=== PATIENT | female | born 1965 | race Caucasian/White ===

== ENCOUNTER 2020-09-12 06:18 | Outpatient (REF) | payer OTHER, SELFPAY ==
[2020-09-12 07:14] LABS: MANUAL DIFF FLAG NO
[2020-09-12 07:23] LABS: Basophils Percent Auto 0.6 % (0-2); Eosinophils Absolute Auto 0.1 X10*3/uL (0.0-0.4); Eosinophils Percent Auto 2.1 % (0-4); Hematocrit 41.8 % (37-47); Hemoglobin 13.1 g/dl (12.0-16.0); Imm Gran Abs Auto 0.01 X10*3/uL (0.00-0.03); Imm Gran Pct Auto 0.2 % (0.0-0.4); Lymphocytes Absolute Auto 1.7 X10*3/uL (1.2-4.9); Lymphocytes Percent Auto 31.2 % (20-40); Mean Corpuscular HGB Conc 31.3 g/dl (31.0-35.0); Mean Corpuscular Hemoglobin 29.6 pg (27.0-33.0); Mean Corpuscular Volume 94.4 fL (80-98); Monocytes Absolute Auto 0.4 X10*3/uL (0.1-1.2); Monocytes Percent Auto 7.9 % (2-11); Neutrophils Absolute Auto 3.1 X10*3/uL (2.0-8.3); Platelet Count 237 X10*3/uL (160-400); Red Blood Count 4.43 X10*6/uL (4.20-5.50); Red Cell Distribution Width 12.9 % (11.0-16.0); White Blood Count 5.4 X10*3/uL (4.8-10.8)
[2020-09-12 08:00] LABS: Alanine Aminotransferase 17 U/L (0-31); Albumin Level 4.5 g/dL (3.5-5.0); Alkaline Phosphatase 64 U/L (39-117); Anion Gap 14 (12-20); Aspartate Amino Transferase 18 U/L (5-31); Bilirubin Total 0.4 mg/dL (0.0-1.0); Blood Urea Nitrogen 14 mg/dL (9-16); Calcium 9.4 mg/dL (8.4-10.2); Carbon Dioxide 28 mmol/L (22-29); Chloride 104 mmol/L (96-108); Cholesterol 242 mg/dL; Estimated Glomerular Filt Rate > 60; Glucose Fasting 97 mg/dL (60-99); HDL Cholesterol 67 mg/dL; LDL Cholesterol Calculated 154 mg/dl; Potassium 4.3 mmol/l (3.3-5.1); Sodium 142 mmol/L (135-145); Total Protein 6.9 g/dL (6.5-8.0); Triglycerides 106 mg/dL
== END 2020-09-12 06:19 | disposition home or self-care (01) ==
LOC: HO.LAB 06:18
PROVIDERS: Visit Provider Internal Medicine Medical Oncology
DX: M81.0 Age-related osteoporosis without current pathological fracture (principal); E78.49 Other hyperlipidemia; Z78.0 Asymptomatic menopausal state
CPT/HCPCS: 36415; 80053; 80061; 85025

== ENCOUNTER 2021-05-18 08:21 | Emergency (ER) | payer OTHER, SELFPAY ==
--- NOTE | ~2021-05-18 | XR_ITS ---
EXAMINATION: LEFT ANKLE AND LEFT FOOT. CLINICAL INFORMATION: Pain status post fall. COMPARISON: None TECHNIQUE: 3 views left foot. 2 views left ankle. FINDINGS: Left ankle: The ankle mortise and subtalar joints are normal. No visible acute fracture or dislocation seen. There is mild inferior lateral malleolar soft tissue swelling likely ligamentous injury. Left foot: There is no visible acute fracture, dislocation or subluxation. The MTP joints and IP joints are intact. No soft tissue abnormality. XR/XR foot LT 2V IMPRESSION: Minimal left inferior lateral malleolar soft tissue swelling likely ligamentous injury. There is no acute fracture or dislocation left ankle or left foot.
--- NOTE | ~2021-05-18 | XR_ITS ---
EXAMINATION: LEFT ANKLE AND LEFT FOOT. CLINICAL INFORMATION: Pain status post fall. COMPARISON: None TECHNIQUE: 3 views left foot. 2 views left ankle. FINDINGS: Left ankle: The ankle mortise and subtalar joints are normal. No visible acute fracture or dislocation seen. There is mild inferior lateral malleolar soft tissue swelling likely ligamentous injury. Left foot: There is no visible acute fracture, dislocation or subluxation. The MTP joints and IP joints are intact. No soft tissue abnormality. XR/XR ankle LT 2V IMPRESSION: Minimal left inferior lateral malleolar soft tissue swelling likely ligamentous injury. There is no acute fracture or dislocation left ankle or left foot.
[2021-05-18 08:21] VITALS: BP 160/75; PULSE 75; RESP 16; TEMP 36.4; O2SAT 100; BMI 25.4
--- NOTE | 2021-05-18 08:39 | ED_ITS ---
HPI - Extremity Injury (Lower) General Chief Complaint: Extremity Problem Stated Complaint: ankle pain Time Seen by Provider: 05/18/21 08:39 Source: patient Mode of arrival: ambulatory Limitations: no limitations History of Present Illness MD complaint: ankle injury and foot injury Onset (ago): day(s) (yesterday ) Injury: Left: ankle and foot Type of Injury: blunt Place: street/outdoors Severity: moderate Relieving factors: nothing Exacerbating factors: weight bearing and movement Context: fall (tried to photobomb a picture and when she jumped up she had inversion injury) Associated symptoms: snap/pop sensation and swelling Other symptoms: none Related Data Allergies Allergy/AdvReac Type Severity Reaction Status Date / Time No Known Allergies Allergy Unverified 06/12/20 08:54 [No Known Allergies*] Review of Systems Review of Systems: Constitutional : No Fever, No Chills ENT/Mouth : No Ear Pain, No Hoarseness, No sore throat Eyes: No Eye Pain, No Swelling, No Redness, No Foreign Body Cardiovascular : No Chest Pain, No SOB Respiratory : No Cough, No Dyspnea Gastrointestinal : No Nausea, No Vomiting, No Diarrhea, No abdominal Pain Genitourinary : No Dysuria, No Hematuria Musculoskeletal : positive joint pain, No Myalgias, pos Joint Swelling Skin : No Skin lacerations, No rash Neuro : No Weakness, No Numbness All other systems reviewed and are negative PMFSH Past Medical History Attestation statement: The following information was validated with the patient. Medical History Breast cancer No known health problems Osteoporosis Social History Social History (Updated 05/18/21 @ 09:09 by Samia Alvarez DO) Patient Tobacco Use Status: Never used Tobacco Advance Directives: No Advance Directives Information Provided: No Patient : No Physical Exam Vital Signs: Vital Signs: Last Vital Signs Temp 97.6 F 05/18/21 08:21 Pulse 75 05/18/21 08:21 Resp 16 05/18/21 08:21 BP 160/75 H 05/18/21 08:21 Pulse Ox 100 05/18/21 08:21 Body Mass Index 25.4 Appearance: Alert. Oriented X3. No acute distress. Eyes: Pupils equal, round and reactive to light. ENT: Pharynx normal. Neck: Normal inspection. Neck supple. CVS: Normal heart rate and rhythm. Pulses normal. Respiratory: No respiratory distress. Breath sounds normal. Abdomen: Soft and nontender. Skin: Skin warm and dry. Normal skin color. Extremities: L ankle ttp along lateral malleolus no prox fib ttp, distal NV intact, contusion noted over L lateral aspect of dorsum of foot, no pain to palpation of the bones Neuro: Oriented X 3. No motor deficit. No sensory deficit. MDM - Extremity Injury (Lower) MDM Narrative Medical decision making narrative: 56 yo female here with L ankle inversion i njury NV intact - no proximal injury reported at this time xrays ordered, has crutches at home will offer hard sole shoe Procedures Orthopedic Splinting/Casting Injury #1: Side: left Lower Extremity Injury Location: ankle Lower Extremity Immobilizer: AirCast Other Orthopedic Equipment: other (has crutches at home) Discharge Plan Discharge Clinical Impression: Foot sprain, Ankle sprain Patient Disposition: Home, Self-Care Instructions: Ankle Sprain (ED), Foot Sprain (ED) Additional Instructions: return to ED for any worsening symptoms or concerns crutches x 3 days if improved can start bearing weight aircast for one week Referrals: Justice Baez MD [Primary Care Provider] - 5 days (if not better) Stand Alone Forms: Work/School Release
== END 2021-05-18 09:42 | disposition home or self-care (01) ==
PROVIDERS: Emergency Provider Emergency Medicine; PCP Internal Medicine Medical Oncology
DX: S93.402A Sprain of unspecified ligament of left ankle, initial encounter (principal); M25.572 Pain in left ankle and joints of left foot; W01.0XXA Fall on same level from slipping, tripping and stumbling without subsequent striking against object, initial encounter; Y93.9 Activity, unspecified; Y92.9 Unspecified place or not applicable; Y99.9 Unspecified external cause status
CPT/HCPCS: 29515; 73600; 73620; 99283

== ENCOUNTER 2022-03-05 09:05 | Outpatient (REF) | payer OTHER, SELFPAY ==
[2022-03-09 12:47] LABS: HPV mRNA E6/E7 rflx Not Detected (Not Detected)
== END 2022-03-05 09:06 | disposition home or self-care (01) ==
LOC: HO.LAB 09:05
PROVIDERS: Visit Provider Advanced Practice Midwife
DX: Z01.419 Encounter for gynecological examination (general) (routine) without abnormal findings (principal); Z11.51 Encounter for screening for human papillomavirus (HPV)
CPT/HCPCS: 87624; 88142

== ENCOUNTER 2022-05-24 07:24 | Outpatient (REF) | payer OTHER, SELFPAY ==
--- NOTE | ~2022-05-24 | XR_ITS ---
EXAMINATION: XR CHEST CLINICAL INFORMATION: Acute cough. COMPARISON: None TECHNIQUE: 2 views of the chest were obtained. FINDINGS: No significant abnormality is noted involving the heart, lungs, mediastinum, bony thorax or soft tissues. XR/XR chest 2V IMPRESSION: Unremarkable chest examination.
== END 2022-05-24 07:25 | disposition home or self-care (01) ==
LOC: HO.XRAY 07:24
PROVIDERS: PCP Internal Medicine Medical Oncology; Visit Provider Internal Medicine Medical Oncology
DX: R05.1 Acute cough (principal)
CPT/HCPCS: 71046; 87070; 87205

== ENCOUNTER 2022-08-23 07:30 | Day surgery (SDC) | payer OTHER, SELFPAY ==
--- NOTE | 2022-08-22 12:57 | P.CONAN_ITS ---
Documented by User: Pilar Bynum NP 08/22/22 12:58 HPI - Anesthesia Eval Consult details Narrative: 57yo F for Colonoscopy Factor V, no OAC PMFSH Active Problems Active Problems: All Active Problems (Updated 08/22/22 @ 12:38 by Shanell Sullivan RN) Encounter for annual routine gynecological examination (Acute) Past Medical History Medical History (Updated 08/22/22 @ 12:38 by Shanell Sullivan RN) Breast cancer Diverticulitis Factor 5 Leiden mutation, heterozygous Osteoporosis Family History Family History Mother History of breast cancer Maternal Grandmother History of breast cancer Uterine cancer Surgical History Surgical History History of lumpectomy of right breast Hx of appendectomy Social History Social History Alcohol intake: current Alcohol intake frequency: a few times a week Patient Tobacco Use Status: Never used Tobacco Use of substances other than those prescribed or required for medical reasons: No Are you DNR?: No Advance Directives: No Advance Directives Information Provided: Yes Current occupational status: employed 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[employer] Sexual orientation: Straight/Heterosexual Gender identity: Female Meds Allergies Allergy/AdvReac Type Severity Reaction Status Date / Time No Known Allergies Allergy Verified 03/05/22 08:09 [No Known Allergies*] Home Medications Medication Instructions Recorded Confirmed Last Taken Type alendronate 70 mg tablet 70 mg PO QWEEK 03/05/22 08/23/22 Unknown History Exam Exam Date and Time: August 22, 2022 1257 Assessment and Plan Assessment Anesthesia Assessment: Chart Reviewed Documented by User: Mary Mckinley MD 08/23/22 08:49 PMFSH Past Medical History Medical History (Updated 08/22/22 @ 12:38 by Shanell Sullivan RN) Breast cancer Diverticulitis Factor 5 Leiden mutation, heterozygous Osteoporosis Family History Family History Mother History of breast cancer Maternal Grandmother History of breast cancer Uterine cancer Surgical History Surgical History History of lumpectomy of right breast Hx of appendectomy Social History Social History Alcohol intake: current Alcohol intake frequency: a few times a week Patient Tobacco Use Status: Never used Tobacco Use of substances other than those prescribed or required for medical reasons: No Are you DNR?: No Advance Directives: No Advance Directives Information Provided: Yes Current occupational status: employed 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[employer] Sexual 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
[2022-08-23 07:44] VITALS: BMI 24.7
[2022-08-23 07:53] VITALS: BP 124/64; PULSE 81; RESP 16; TEMP 36.7; O2SAT 100
[2022-08-23] MEDS: Lactated Ringers 1,000 ML 100 ML IVCONT (08:10)
[2022-08-23 09:48] VITALS: BP 104/53; PULSE 69; RESP 17; TEMP 37.1; O2SAT 98
--- NOTE | 2022-08-23 09:52 | P.BOP_ITS ---
Brief Operative Note Date of Service: 08/23/22 Pre-op diagnosis: Screening Post-op diagnosis: other (Rectal polyp) Procedure: Colonoscopy to the cecum and TI with cold snare polypectomy and bx/removal of rectal polyp Surgeon: Justice Brown Anesthesia: MAC Was an General Technician used for this Procedure?: No Estimated blood loss (mL): 2.0 Pathology: other (A. Distal rectal polyp) Condition: stable Disposition: PACU
[2022-08-23 10:03] VITALS: BP 114/60; PULSE 65; RESP 18; TEMP 36.9; O2SAT 98
--- NOTE | 2022-08-23 11:00 | OP_ITS ---
SURGEON: Justice Brown MD INDICATIONS: The patient presents for evaluation of colorectal cancer screening and personal history of tubular adenoma of the colon. Full consent was obtained from her for this, including risks of bleeding and perforation. PREOPERATIVE DIAGNOSIS: POSTOPERATIVE DIAGNOSIS: PROCEDURE PERFORMED: Colonoscopy to cecum and terminal ileum with cold snare polypectomy and biopsy and removal of polyp. ESTIMATED BLOOD LOSS: COMPLICATIONS: ANESTHESIA: Monitored anesthesia care. ASSISTANTS: SPECIMENS: PREOPERATIVE DIAGNOSES: Personal history of tubular adenoma of the colon and colorectal cancer screening. POSTOPERATIVE DIAGNOSES: Personal history of tubular adenoma of the colon and colorectal cancer screening, small colon polyp, diverticulosis and internal hemorrhoids. DESCRIPTION OF PROCEDURE: The patient was placed in the left lateral decubitus position. The digital rectal exam revealed no abnormalities. The Olympus video pediatric colonoscope was entered into the rectum and advanced easily to the cecum. Once in the cecum, I did identify normal-appearing cecal pouch with appendiceal orifice and a normal-appearing ileocecal valve. The terminal ileum was cannulated and appeared normal. The scope was withdrawn back in the colon. The entire cecum and ileocecal valve appeared normal. The scope was slowly withdrawn assessing all mucosal surfaces carefully. Preparation was excellent. There was a moderate amount of diverticulosis. I did not visualize any sign of colitis nor angiodysplasia. In the rectum, the scope was retroflexed visualizing some internal hemorrhoids as well as an approximately 5 or 6 mm distal rectal polyp. This was partially removed by cold snare polypectomy and the remainder of it was removed with a biopsy forceps. The remainder of the rectum appeared normal. Scope was straightened and withdrawn the patient. She tolerated the procedure well and was returned to the recovery area in stable condition. IMPRESSION: 1. Small rectal polyp. 2. Diverticulosis. 3. Internal hemorrhoids. PLAN: I would recommend a repeat colonoscopy in 5 years for further screening. She was advised not to use any aspirin or NSAIDs for 1 week. The results of biopsies will be checked. MD ANTIONE Rhoades/VIRY / [id number]
== END 2022-08-23 10:19 | disposition home or self-care (01) ==
PROVIDERS: PCP Internal Medicine Medical Oncology; Visit Provider Internal Medicine
PROC: 0DJD8ZZ Inspection of Lower Intestinal Tract, Via Natural or Artificial Opening Endoscopic (ICD-10-PCS; CPT 45378; principal; 2022-08-23 08:40)
DX: Z12.11 Encounter for screening for malignant neoplasm of colon (principal); Z86.010 Personal history of colon polyps; D12.8 Benign neoplasm of rectum; K57.30 Diverticulosis of large intestine without perforation or abscess without bleeding; K64.8 Other hemorrhoids; M81.0 Age-related osteoporosis without current pathological fracture; D68.51 Activated protein C resistance; Z85.3 Personal history of malignant neoplasm of breast; Z92.21 Personal history of antineoplastic chemotherapy; Z92.3 Personal history of irradiation; Z87.19 Personal history of other diseases of the digestive system; Z87.891 Personal history of nicotine dependence
CPT/HCPCS: 45385; 45380; 88305; J2250

== ENCOUNTER 2022-09-17 06:11 | Outpatient (REF) | payer OTHER, SELFPAY ==
[2022-09-17 06:29] LABS: MANUAL DIFF FLAG NO
[2022-09-17 08:05] LABS: Basophils Absolute Auto 0.1 X10*3/uL (0.0-0.2); Basophils Percent Auto 0.6 % (0-2); Eosinophils Absolute Auto 0.1 X10*3/uL (0.0-0.4); Eosinophils Percent Auto 1.4 % (0-4); Hematocrit 42.4 % (37.0-47.0); Hemoglobin 13.4 g/dl (12.0-16.0); Imm Gran Abs Auto 0.02 X10*3/uL (0.00-0.03); Imm Gran Pct Auto 0.2 % (0.0-0.4); Lymphocytes Absolute Auto 1.7 X10*3/uL (1.2-4.9); Lymphocytes Percent Auto 19.7 % (20-40); Mean Corpuscular HGB Conc 31.6 g/dl (31.0-35.0); Mean Corpuscular Hemoglobin 29.1 pg (27.0-33.0); Mean Platelet Volume 11.2 fL (9.4-12.3); Monocytes Absolute Auto 0.6 X10*3/uL (0.1-1.2); Monocytes Percent Auto 7.3 % (2-11); Neutrophils Percent Auto 70.8 % (45-73); Platelet Count 256 X10*3/uL (160-400); Red Blood Count 4.61 X10*6/uL (4.20-5.50); Red Cell Distribution Width 12.9 % (11.0-16.0); White Blood Count 8.5 X10*3/uL (4.8-10.8)
[2022-09-17 08:45] LABS: Alanine Aminotransferase 17 U/L (0-31); Albumin Level 4.5 g/dL (3.5-5.0); Alkaline Phosphatase 70 U/L (39-117); Anion Gap 15 (12-20); Aspartate Amino Transferase 20 U/L (5-31); Blood Urea Nitrogen 10 mg/dL (9-16); Calcium 9.5 mg/dL (8.4-10.2); Carbon Dioxide 26 mmol/L (22-29); Chloride 106 mmol/L (96-108); Cholesterol 261 mg/dL; Estimated Glomerular Filt Rate > 60; Glucose Fasting 88 mg/dL (60-99); HDL Cholesterol 61 mg/dL; LDL Cholesterol Calculated 173 mg/dl; Potassium 4.3 mmol/L (3.3-5.1); Sodium 143 mmol/L (135-145); Total Protein 6.9 g/dL (6.5-8.0); Triglycerides 137 mg/dL
[2022-09-17 09:03] LABS: Vitamin D 25-OH Total 35.7 ng/mL (>30)
[2022-09-20 11:04] LABS: IgA 154 mg/dL (47-310); IgG 959 mg/dL (600-1640); IgM 61 mg/dL (50-300)
== END 2022-09-17 06:12 | disposition home or self-care (01) ==
LOC: HO.LAB 06:11
PROVIDERS: PCP Internal Medicine Medical Oncology; Visit Provider Internal Medicine Medical Oncology
DX: C50.911 Malignant neoplasm of unspecified site of right female breast (principal); D68.59 Other primary thrombophilia; D80.6 Antibody deficiency with near-normal immunoglobulins or with hyperimmunoglobulinemia; M81.0 Age-related osteoporosis without current pathological fracture; E78.49 Other hyperlipidemia
CPT/HCPCS: 36415; 80053; 80061; 82232; 82306; 82784; 85025; 86334

== ENCOUNTER 2023-01-08 06:56 | Outpatient (REF) | payer OTHER, SELFPAY ==
[2023-01-08 07:08] LABS: MANUAL DIFF FLAG NO
[2023-01-08 07:52] LABS: Basophils Percent Auto 0.8 % (0-2); Eosinophils Absolute Auto 0.2 X10*3/uL (0.0-0.4); Eosinophils Percent Auto 3.5 % (0-4); Hematocrit 42.5 % (37.0-47.0); Hemoglobin 13.6 g/dl (12.0-16.0); Imm Gran Abs Auto 0.01 X10*3/uL (0.00-0.03); Imm Gran Pct Auto 0.2 % (0.0-0.4); Lymphocytes Absolute Auto 1.6 X10*3/uL (1.2-4.9); Mean Corpuscular Hemoglobin 29.4 pg (27.0-33.0); Mean Platelet Volume 10.6 fL (9.4-12.3); Monocytes Absolute Auto 0.5 X10*3/uL (0.1-1.2); Monocytes Percent Auto 8.8 % (2-11); Neutrophils Absolute Auto 2.8 x10*3/uL (2.0-8.3); Neutrophils Percent Auto 54.7 % (45-73); Platelet Count 256 X10*3/uL (160-400); Red Blood Count 4.62 X10*6/uL (4.20-5.50); White Blood Count 5.1 X10*3/uL (4.8-10.8)
[2023-01-08 08:22] LABS: Alanine Aminotransferase 20 U/L (0-31); Albumin Level 4.6 g/dL (3.5-5.0); Alkaline Phosphatase 68 U/L (39-117); Anion Gap 13 (12-20); Aspartate Amino Transferase 19 U/L (5-31); Bilirubin Total 0.9 mg/dL (0.0-1.0); Blood Urea Nitrogen 13 mg/dL (9-16); Calcium 9.6 mg/dL (8.4-10.2); Carbon Dioxide 29 mmol/L (22-29); Chloride 105 mmol/L (96-108); Cholesterol 254 mg/dL; Estimated Glomerular Filt Rate > 60; Glucose Fasting 99 mg/dL (60-99); HDL Cholesterol 74 mg/dL; LDL Cholesterol Calculated 164 mg/dl; Potassium 4.6 mmol/L (3.3-5.1); Sodium 142 mmol/L (135-145); Total Protein 7.1 g/dL (6.5-8.0); Triglycerides 80 mg/dL
== END 2023-01-08 06:57 | disposition home or self-care (01) ==
LOC: HO.LAB 06:56
PROVIDERS: PCP Internal Medicine Medical Oncology; Visit Provider Internal Medicine Medical Oncology
DX: C50.911 Malignant neoplasm of unspecified site of right female breast (principal); E78.49 Other hyperlipidemia; D68.59 Other primary thrombophilia
CPT/HCPCS: 36415; 80053; 80061; 85025

== ENCOUNTER 2023-03-11 07:52 | Outpatient (AMB) | payer OTHER, SELFPAY ==
--- NOTE | 2023-03-11 07:57 | A.OFFVIS_ITS ---
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 Scribed for DANAY Licea by Ml Gates medical record assistant, on 03/11/2023 at 8:13 am EST. Service Employee: Service Employee Present (Estee) Allergies No Known Allergies [No Known Allergies*] Allergy (Verified 03/11/23 07:59) HPI HPI Comments History of Present Illness Details She is a postmenopausal woman presenting for annual exam. Patient admits she tries to eat a healthy diet including Calcium and Vitamin D. Reports she had COVID and is not as active as before. Currently sexually active, some vaginal pain, not dry, not a problem per pt. Denies vaginal itching and irritation. Denies family hx of colon and ovarian cancer. Last pap smear; 03/05/22; abnormal ~4-5yrs. ago. Last mammogram 04/18/22 at [facility], no records availalbe. 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 [employer] Sexual orientation: Straight/Heterosexual Gender identity: Female Female Reproductive History Menstrual Total pregnancies: 3 Full term: 2 Number of Living Children: 2 Date of last pap smear: 03/05/22 (neg pap and hpv) History of abnormal pap smear: Yes (hx colpo with Dr Adams) Date of Mammogram: 04/18/22 Physical Exam Vital Signs: Last Vital Signs BP 106/62 03/11/23 07:59 BMI result Body Mass Index 26.6 Const General: cooperative, healthy appearing, no acute distress, well developed and alert Orientation/consciousness: patient oriented x3 HEENT Head: Yes normal to inspection Eyes General: appearance normal, both eyes and all related structures Neck Neck: Yes normal visual inspection Thyroid: Thyroid normal Chest Other: scar tissue on right breast from surgical scars Chest palpation & inspection: normal inspection of the chest Breast/axilla inspection: normal inspection of the breasts (no puckering, dimpling, peau de orange, retraction, discharge, masses) Breast/axilla palpation: normal palpation of the breasts Resp Effort & Inspection: normal respiratory effort GI Inspection: Yes normal to inspection Palpation (GI): Soft to palpation (to palpation) Rectal Exam - Female: deferred General: Yes bladder normal to inspection External Female Exam: normal external appearance and normal appearance of the urethra Speculum Exam - Vagina: normal appearance of the vagina, normal palpation and vagina atrophic Speculum Exam - Cervix: normal appearance of the cervix and normal palpation Bimanual exam- vagina & uterus: normal palpation and normal palpation Bimanual Exam- Adnexa, other: normal adnexae and no masses Skin General skin exam: no rashes or lesions noted Neuro General: patient oriented x3 Cognition (Neuro): normal cognition Extrem General: Yes normal to inspection Psych Attitude: cooperative Thought process: Normal thought process present Assessment & Plan Assessment & Plan (1) Encounter for annual routine gynecological examination: Code(s): Z01.419 - Encounter for gynecological examination (general) (routine) without abnormal findings Plan: Discussed: Current recommendations for pap smears per ASCCP guidelines. Breast awareness and periodic self breast exams. Encouraged yearly mammograms. Maintaining a healthy lifestyle including a well balanced diet including Calcium and Vitamin D and routine exercise/consider yoga. Sign release of last pap and mammograms records. Recommend Replens additionally for vaginal dryness. Contact office with any PMB. All of her questions and concerns were addressed to the best of my ability RTO in 1 year for AG. (2) Menopausal vaginal dryness: Code(s): N95.1 - Menopausal and female climacteric states Orders: Orders Pap Smear Today Z01.419 - Encounter for gynecological examination (general) (routine) without abnormal findings Coding Level of Care Code Est Pt Prev Care 40-64y(76234) Diagnoses Encounter for annual routine gynecological examination Z01.419 Menopausal vaginal dryness N95.1
[2023-03-11 07:59] VITALS: BP 106/62; BMI 26.6
== END 2023-03-11 08:38 | disposition home or self-care (01) ==
LOC: HO.HWS 07:52
PROVIDERS: PCP Internal Medicine Medical Oncology; Visit Provider Advanced Practice Midwife
DX: Z01.419 Encounter for gynecological examination (general) (routine) without abnormal findings (principal); N95.1 Menopausal and female climacteric states
CPT/HCPCS: 99396

== ENCOUNTER 2023-03-11 07:52 | Outpatient (REF) | payer OTHER, SELFPAY ==
[2023-03-18 21:14] LABS: HPV mRNA E6/E7 rflx Not Detected (Not Detected)
== END 2023-03-11 07:53 | disposition home or self-care (01) ==
LOC: HO.LNP 07:52
PROVIDERS: PCP Internal Medicine Medical Oncology; Visit Provider Advanced Practice Midwife
DX: Z01.419 Encounter for gynecological examination (general) (routine) without abnormal findings (principal); Z11.51 Encounter for screening for human papillomavirus (HPV); N95.1 Menopausal and female climacteric states
CPT/HCPCS: 87624; 88142

== ENCOUNTER 2024-05-12 10:13 | Outpatient (AMB) | payer OTHER, SELFPAY ==
--- NOTE | 2024-05-12 10:16 | A.OFFVIS_ITS ---
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 She is doing well with no concerns. Admits to right breast pain around the area of surgery and scarring, was seen in the past for this and told that the scar tissue could be stretched out. Attempting to eat a healthy diet with calcium and vitamin D and stays active with exercise, walks and goes to the gym. Currently sexually active. Denies any vaginal dryness or irritation. She denies any urinary incontinence. STI testing offered; she declines. Last pap smear; 2022 and 2021-negative. Hx. of abnormal many years ago w/Dr. Adams-records not availalbe. Never had a LEEP, hx. of biopsy. Last mammogram; UTD at [facility], next appointment scheduled 06/06/2024, no records available. No longer sees an oncologist. Colonoscopy is UTD. Denies any family history of breast, ovarian or colon cancer. 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 [employer] Sexual orientation: Straight/Heterosexual Gender identity: Female Female Reproductive History Menstrual Total pregnancies: 3 Full term: 2 Number of Living Children: 2 Date of last pap smear: 03/11/23 (neg pap and hpv) History of abnormal pap smear: Yes (hx colpo with Dr Adams) 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) Other: Colonoscopy 08/23/22 Review of Systems Const All systems reviewed & are unremarkable except as noted in HPI and below Reports as per HPI Eyes Reports no additional complaints ENT Reports no additional complaints Card Reports no additional complaints Resp Reports no additional complaints GI Reports as per HPI and Reports no additional complaints Reports as per HPI Musc Reports no additional complaints Skin/Breast Reports as per HPI Neuro Reports no additional complaints Psych Reports no additional complaints Endo Reports no additional complaints Emmanuel/Lymph Reports no additional complaints Aller/Immun Reports no additional complaints Physical Exam Vital Signs: Last Vital Signs BP 112/64 05/12/24 10:18 BMI result Body Mass Index 26.0 Const General: cooperative, healthy appearing, no acute distress, well developed and alert Orientation/consciousness: patient oriented x3 HEENT Head: Yes normal to inspection Eyes General: appearance normal, both eyes and all related structures Neck Neck: Yes normal visual inspection Thyroid: Thyroid normal Chest Other: Right breast postsurgical scarring Chest palpation & inspection: normal inspection of the chest and other (no puckering, dimpling, peau de orange, retraction, discharge, masses) Breast/axilla inspection: normal inspection of the breasts Breast/axilla palpation: normal palpation of the breasts Resp Effort & Inspection: normal respiratory effort GI Inspection: Yes normal to inspection Palpation (GI): Soft to palpation Rectal Exam - Female: deferred General: Yes bladder normal to palpation External Female Exam: normal external appearance and normal appearance of the urethra Speculum Exam - Vagina: normal appearance of the vagina, normal palpation, normal vaginal discharge and vagina atrophic Speculum Exam - Cervix: normal appearance of the cervix and normal palpation Bimanual exam- vagina & uterus: normal bimanual exam, normal palpation, uterine size normal, bladder normal to palpation, normal palpation and non-tender Bimanual Exam- Adnexa, other: no masses, rectocele and Other (Prolapse) Skin General skin exam: no rashes or lesions noted Rashes: no rashes Neuro General: patient oriented x3 Cognition (Neuro): normal cognition Extrem General: Yes normal to inspection Psych Attitude: cooperative Thought process: Normal thought process present Assessment & Plan Assessment & Plan (1) Encounter for annual routine gynecological examination: Code(s): Z01.419 - Encounter for gynecological examination (general) (routine) without abnormal findings Category: Medical Plan Discussed: Current recommendations for pap smears per ASCCP guidelines. Breast awareness, periodic self breast exams and yearly mammogram. Maintain a healthy lifestyle, well balanced diet including Calcium 1,200 mg and Vitamin D 600 IU daily, and routine exercise. Recommended [facility] send next mammogram to service here. Consider pelvic floor exercise-PT if needed. Follow up with PCP or cancer center, breast care center regarding breast scarring and consider PT/massage therapy for that also. Contact the office with any postmenopausal bleeding. Patient verbalizes understanding and agrees to the plan of care. She was given opportunity to ask questions and all questions were answered to the best of my ability. RTO in 1 year for annual ob gyn exam. This note is constructed using voice recognition software. While every effort has been made to ensure accuracy, division director errors may have been included. Coding Level of Care Code Est Pt Prev Care 40-64y(92095) Diagnoses Encounter for annual routine gynecological examination Z01.419
[2024-05-12 10:18] VITALS: BP 112/64; BMI 26.0
== END 2024-05-12 11:04 | disposition home or self-care (01) ==
PROVIDERS: PCP Internal Medicine Medical Oncology; Visit Provider Advanced Practice Midwife
DX: Z01.419 Encounter for gynecological examination (general) (routine) without abnormal findings (principal)
CPT/HCPCS: 99396

== ENCOUNTER → 2024-05-12 10:13 | Outpatient (BNVA) | payer OTHER, SELFPAY | PROVIDERS: PCP Internal Medicine Medical Oncology; Visit Provider Advanced Practice Midwife ==

== ENCOUNTER 2025-03-09 09:37 | Outpatient (REF) | payer OTHER, SELFPAY ==
--- OUTSIDE RECORDS SUMMARY | 2025-01-21 05:00 | XMS_ITS ---
Author Organization Justice Baez III, MD Address [address] [place] [address] [place] [address] Care Team Providers Care Advertising Internship Name Role Phone Justice Baez Primary Care Provider Allergies Allergen (clinical drug ingredient) Drug/Non Drug Allergy documented on EMR Reaction Allergy Type Onset Date Status No Known Drug Allergy Unknown Drug Allergy Active Shellfish (FN) scallops (uncoded) Unknown Allergy Active REASON FOR VISIT Annual Exam [...] Observation Description Sex Assigned At Female Tobacco Control (Standard) Question Answer Notes Tobacco use: Former smoker How long has it been since you last smoked? 5-10 years Additional Findings: Tobacco non-user Ex-cigaret te smoker AUDIT-C (Standard) Question Answer Notes Did you have a drink contain ing alcohol in the past year? Yes How often did you have six o r more drinks on one occasion in the past year? 4 or more times a week (4 points) How many drinks did you have on a typical day when you were drinking in the past year? 1 or 2 drinks (0 point) How often did you have a dri nk containing alcohol in the past year? Never (0 point) Points 4 Interpretation Positive Vital Signs Temperature 98.1 degrees Fahrenheit 01/22/20 25 Blood pressure systolic 142 mm Hg 01/22/20 25 Blood pressure diastolic 79 mm Hg 025 Heart Rate 79 /min 01/21/2025 Height 67 in 01/21/2025 Weight 163 lbs 01/21/2025 BMI 25.53 kg/m2 01/21/2025 Encounters Encounter Location Date Provider Diagnosis Justice Baez III, MD [address] [place] [address] [place] [address] 01/21/2025 Justice Baez Other hyperlipidemia E78.49 ; Malignant neoplasm of unspecified site of right female breast C50.911 ; Osteoporosis, unspecified osteoporosis type, unspecified pathological fracture presence M81.0 ; Overweight (BMI 25.0-29.9) E66.3 ; Bursitis of left shoulder M75.52 ; Onychomycosis B35.1 ; Factor V Leiden D68.51 ; Former smoker Z87.891 and Thrombophilia D68.59 Assessments Encounter Date Diagnosis (ICD Code) Assessment Notes Treat ment Notes Treatment Clinical Notes 01/21/2025 Other hyperlipidemia (ICD-10 - E78.49) She continues to decline my offer of a prescription for statin medication. Her total cholesterol has been consistently elevated. She is aware of the risks and benefits.I have ordered comprehensive blood work to be done in the next few days which will include a fasting lipid profile. 01/21/2025 Malignant neoplasm o f unspecified site of right female breast (ICD-10 - C50.911) There was no sign of a new primary are very current today. Surveillance will continue. She will continue with annual mammography. 01/21/2025 Osteoporosis, unspecified osteoporosis type, unspecified pathological fracture presence (ICD-10 - M81.0) A bone density has been ordered. No change in her medications was made. 01/21/2025 Overweight (BMI 25.0-29.9) (ICD-10 - E66.3) Body mass index is 25.53. We discussed diet and nutrition. We made a plan to lose weight at a rate of one half of a pound per week until the body mass index was in the normal range. 01/21/2025 Bursitis of left shoulder (ICD-10 - M75.52) The pain in the shoulder has resolved and she is now able to conduct all of the activities of daily life without pain. 01/21/2025 Onychomycosis (ICD-1 0 - B35.1) She continues on terbinafine without any complaint. 01/21/2025 Factor V Leiden (ICD-10 - D68.51) She has had no symptoms of arterial or venous blood clots since her last visit. 01/21/2025 Former smoker (ICD-1 0 - Z87.891) She is highly motivated not to smoke. We discussed a plan to prevent relapse in times of stress or illness. 01/21/2025 Thrombophilia (ICD-1 0 - D68.59) She has had no clotting or bleeding. Surveillance will continue. Plan Of Treatment Medication Medication Name Sig Start Date Stop Date Notes Triamcinolone Acetonide 0.1 % 1 applicat ion Externally Twice a day 01/10/2023 Alendronate Sodium 70 MG TAKE 1 TABLET B Y MOUTH ONE TIME PER WEEK Multivitamins - Orally Pending Test Test Name Order Date PROFILE, FASTING (COMPREHENSIVE METABOLI C) 01/21/2025 CBC w DIFF 01/21/2025 BONE DENSITY DEXA 01/21/2025 Lipid Panel 01/21/2025 Next Appt Details Follow Up: 4 Months, Reason: OV Provider Name:Justice Baez, 05/20/2025 09:00:00 AM, [address] [place] [address] [address], NISH[place], [phone], Provider Name:Justice Baez, 01/24/2026 09:00:00 AM, [address] [place] [address] [place], [phone], Progress Notes * Baljnider GANDARADOB:1964 (59 yo F)Acc No.[id number]:01/21/2025 Progress Notes Patient: Baljinder PEREYRA Provider: Lexy Baez MD :1965 A ge:59 Y S ex:Female Date:01/21/2025 Address:[address] [place] [address] SELMA Pop [id number] Subjective: * Chief Complaints: * A nnual Exam * HPI: D epression Screening: She comes to the office today at the age of 59 for her annual physical examination and visit. Her last mammogram was May 2024 at [facility]. She is up-to-date with colonoscopy. She has been conducting breast self-examination with negative results.She conducts breast self-examination with negative results.She has had no nausea vomiting diarrhea dyspnea or chest pain. PHQ-9 L ittle interest or pleasure in [...] T otal Score 0 C OVID-19 Screening: She returns at the age of 59, for her annual physical examination. She is followed here for a history of carcinoma of the right breast which was estrogen receptor positive, left shoulder bursitis, factor V Leiden, onychomycosis, osteoporosis, hyperlipidemia and adenomatous polyps of the colon. She is feeling healthy and well. Questions H ave you had any new onset fever, chills, cough, congestion, sore throat, shortness of breath, muscle aches? N o S ASHISH Questions: SDOH Questions I n the past year have you or any family members you live with been unable to get any of the following when it was really needed? Check all that apply: Al randall to answer * ROS: G eneral/Constitutional: pain L eft shoulder, otherwise only normal aches and pains.?Chills d enies. F atigue a dmits. F ever d enies. E [...] History: a ppendectomy 1970right breast lumpectomy 2002-2012colonoscopy [facility]. Dr. Justice Brown tubular adenoma 2017endometrial biopsy, Dr. Mauricio Adams 2017 * Hospitalization/Major Diagno stic Procedure: N o history * Family History: F ather: 64 yrs, Alcoholism, dementia. M other: 75 yrs, Breast cancer, chronic renal failure, diverticulitis with perforation, Crohn's disease, diagnosed with HTN, Cancer. Children: alive. S iblings: alive. 1 brother(s) [...] Social History: T obacco Use: T obacco Control (Standard) T obacco use: F ormer smoker H ow long has it been since you last smoked??5-10 years A dditional Findings: Tobacco non-user E x-cigarette smoker D rugs/Alcohol: D rugs H ave you used drugs other than those for medical reasons in the past 12 months? N o D rug/Alcohol: A EDWINA-C (Standard) D id you have a drink containing alcohol in the past year? Y es H ow often did you have six or more drinks on one occasion in the past year? 4 or more times a week (4 points) H ow many drinks did you have on a typical day when you were drinking in the past year? 1 or 2 drinks (0 point) H ow often did you have a drink containing alcohol in the past year? N ever (0 point) P oints 4 I nterpretation P ositive S he is to Luis for many years. He is a harbor patrol police in [place]. Her son, Shekhar is a harbor patrol police in [place], [place]. She lives with her at [place], [place]. * Medications: T akingMultivitamins - Capsule Orally Triamcinolone Acetonide 0.1 % Cream 1 application Externally Twice a day , Notes to Pharmacist: as neededAlendronate Sodium 70 MG Tablet TAKE 1 TABLET BY MOUTH ONE TIME PER WEEK Medication List reviewed and reconciled with the patientTaking Multivitamins - Capsule Orally Taking Triamcinolone Acetonide 0.1 % Cream 1 application Externally Twice a day , Notes to Pharmacist: as neededTaking Alendronate Sodium 70 MG Tablet TAKE 1 TABLET BY MOUTH ONE TIME PER WEEK Medication List reviewed and reconciled with the patient * Allergies: N o Known Drug Allergyscallopsno[Allergies Verified] Objective: * Vitals: H t: 67, Wt: 163, BMI:25.53, BP: 142/79, HR: 79, Temp: 98.1, Wt-k.94. * Examination: G eneral Examination: GENERAL APPEARANCE: [...] LUNGS: c lear to auscultation . BREASTS: no masses palpable bilaterally, Scars healed. ABDOMEN: b owel sounds normal, no ascites, no organomegaly, no mass, overweight. RECTAL EXAM: n ot examined. MUSCULOSKELETAL: e xtremities unremarkable, no clubbing, cyanosis or edema. PERIPHERAL PULSES: n ormal. NEUROLOGIC: a lert and oriented, cranial nerves 2-12 grossly intact, deep tendon reflexes 2+ symmetrical, motor strength normal upper and lower extremities, sensory exam intact. PSYCH: a lert, oriented. Assessment: * Assessment: 1. M alignant neoplasm of unspecified site of right female breast - C50.911 (Primary) ? N otes :There was no sign of a new primary are very current today. Surveillance will continue. She will continue with annual mammography. 2 . O ther hyperlipidemia - E78.49 N otes :She continues to decline my offer of a prescription for statin medication. Her total cholesterol has been consistently elevated. She is aware of the risks and benefits.I have ordered comprehensive blood work to be done in the next few days which will include a fasting lipid profile. 3 . O steoporosis, unspecified osteoporosis type, unspecified pathological fracture presence - M81.0 N otes :A bone density has been ordered. No change in her medications was made. 4 . O verweight (BMI 25.0-29.9) - E66.3 N otes :Body mass index is 25.53. We discussed diet and nutrition. We made a plan to lose weight at a rate of one half of a pound per week until the body mass index was in the normal range. 5 . B ursitis of left shoulder - M75.52 N otes :The pain in the shoulder has resolved and she is now able to conduct all of the activities of daily life without pain. 6 . O nychomycosis - B35.1 N otes :She continues on terbinafine without any complaint. 7 . F actor V Leiden - D68.51 N otes :She has had no symptoms of arterial or venous blood clots since her last visit. 8 . F ormer smoker - Z87.891 N otes :She is highly motivated not to smoke. We discussed a plan to prevent relapse in times of stress or illness. 9 . T hrombophilia - D68.59 N otes :She has had no clotting or bleeding. Surveillance will continue. Plan: * Treatment: 2. O steoporosis, unspecified osteoporosis type, unspecified pathological fracture presence I maging: BONE DENSITY DEXA 3. O verweight (BMI 25.0-29.9) L AB: PROFILE, FASTING (COMPREHENSIVE METABOLIC) L AB: CBC w DIFF L AB: Lipid Panel * Procedure Codes: * Preventive Medicine: Counseling: [...] tobacco use and urged to quit. 0 01/21/2025 * Follow Up: 4 Months (Reason: OV) * Images: * Sign off status: Completed true * Provider: Lexy Baez MD Date: 0 01/21/2025 Generated for Markel lackey/Russell/Kinjalitting on: 0 03/09/2025 10:08 AM EDT History and Physical Notes * [...] throat, shortness of breath, muscle aches?: No SDOH Questions SDOH Questions In the past year have you or any family members you live with been unable to get any of the following when it was really needed? Check all that apply:: Decline to answer Examination Category Sub-Category Detail Notes General Examination [...] lesion s, anicteric PERIPHERAL PULSES: normal BREASTS: no masses palpable b ilaterally, Scars healed MUSCULOSKELETAL: extremities unremark able, no clubbing, cyanosis or edema LYMPH NODES: no enlarged lymph no cody,spleen normal RECTAL EXAM: not examined PSYCH: alert, oriented ORAL CAVITY: normal, unremarkable
--- NOTE | ~2025-03-09 | MM_ITS ---
EXAMINATION: DXA BONE DENSITY AXIAL HISTORY: osteoporosis TECHNIQUE: Kabbee Dual energy absorptiometry (DEXA) of the lumbar spine, total left hip, and femoral neck was performed. COMPARISON: Comparison is made with the prior examination dated 05/04/2019. FINDINGS: The bone mineral density of the lumbar spine is 0.894 g/cm2, corresponding to a T-score of -2.4, and a Z-score of -1.5. This is indicative of osteopenia. This represents a BMD change of 10.1% compared to the prior exam. This is statistically significant. The bone mineral density of the left total hip is 0.786 g/cm2, corresponding to a T-score of -1.8, and a Z-score of -1.0. This is indicative of osteopenia. This represents a BMD change of 3.6% compared to the prior exam. This is not statistically significant. The bone mineral density of the left femoral neck is 0.675 g/cm2, corresponding to a T-score of -2.6, and a Z-score of -1.6. This is indicative of osteoporosis. This represents a BMD change of -1.9% compared to the prior exam. MM/XR DEXA axial skeleton IMPRESSION: Based on bone mineral density, and according to World Health Organization (WHO) criteria, the diagnosis is consistent with osteoporosis. Statistically, 68% of repeat scans fall within 1 SD (+/- 0.010 g/cm2 for AP spine L1-L4) and 1 SD (+/- 0.012 g/cm2 for femur total) FRAX is a trademark of the [employer]'s [place] for Metabolic Bone Disease, a World Health Organization (WHO) Collaborating Center. Electronically signed by: Justice Hines MD 03/09/2025 10:56 AM EDT
--- OUTSIDE RECORDS SUMMARY | 2025-03-09 10:08 | XMS_ITS | Patient Health Record ---
Author Organization [facility] Address [address] [place] [address] Care Team Providers Care Climatology Professor Name Role Phone Justice Baez MD Primary Care Provider Reji Nichols Unavailable [phone] Allergies No Known Allergies Reason For Referral No Information Medications Medication SIG (Take, Route, Frequency, Duration) Notes Start Date End Date Status Diflucan 200 MG 1 tablet Orally i po qd; Duration: 30 days Not-Taking Alendronate Sodium 70 MG 1 tablet 30 min utes before the first food, beverage or medicine of the day with plain water Orally once a week 01/25/2020 Active LamISIL 250 MG 1 tablet Orally Once a day; Duration: 30 days Active Immunizations Vaccine Route Administration Date Status Comme nts COVID-19 Moderna Vaccine Unknown 12/28/2020 Administere d 1st 11/29/2020 Social History Tobacco Use: Social History Observation Description Date Details (start date - stop date) Former Smoker NA - NA Tobacco Use/Smoking Question Answer Notes Are you a: former smoker Additional Findings: Tobacco Non-User Current no n-smoker Alcohol Screen Question Answer Notes Did you have a drink containing alcohol in the p ast year? Yes Points 0 Interpretation Negative Tobacco use other than smoking: Question Answer Notes Are you an other tobacco user? No Plan Of Treatment Pending Test Test Name Order Date *Liver Function Test (LFT) 04/05/2020 Insurance Providers Payer Name Payer Address Payer Phone Subscriber Number Group Number Insured Name Patient Relationship to Insured Coverage Start Date Coverage End Date [employer] [facility] [address] [place] [address] [id number] Baljinder Vaca Self - patient is the insured Medical (General) History Medical History History ICD Code Anxiety Broken bones Cancer Osteoporosis Chicken pox Factor V Blood covid-19 Surgical History Surgery Date(Month/Year) cancer surgery Breast 08/2010
--- OUTSIDE RECORDS SUMMARY | 2025-03-09 10:08 | XMS_ITS | Encounter Summary ---
Author Organization [facility] Address [address] [place] [address] Phone Care Team Providers Care Culinary Internship Name Role Phone Efrem Adams MD Primary Care Provider [phone] Kerri Gunter RN Unavailable [phone] Kenia Busch MD Unavailable [phone] Mallorie Urbina NP Unavailable [phone] Encounter Details Date Type Department Care Team (Late st Contact Info) Description 03/13/2017 Ancillary Orders [facility], [facility], [facility] [place] [address] [facility] [address] [facility], 9th [place] [address] Kenia Busch MD [address] [place] [address] [email or web address] Lump in female breast Social History Tobacco Use Types Packs/Day Years Used Date Smoking Tobacco: Every Day Alcohol Use Standard Drinks/Week Comments No 0 (1 standard drink = 0.6 oz pur e alcohol) Comments Unknown Sex and Gender Information Value Date Recorded Sex Assigned at Not on file Legal Sex Female 5:00 PM EST Gender Identity Not on file Sexual Orientation Not on file documented as of this encounter Plan of Treatment Not on file documented as of this encounter Results * BI US BREAST LIMITED (RIGHT) (03/13/2017 8:43 AM EDT) Anatomical Region Laterality Modality Breast Right, Breast Bilateral Right U ltrasound Other 03/13/2017 8:43 AM EDT Impressions 03/13/2017 8:52 AM EDT Left Breast - Category 1. Negative, no mammographic evidence of malignancy. Recommend routine screening. Right Breast - Category 2. S/P lumpectomy and radiation therapy. Benign, no evidence of malignancy. Recommend routine screening. Further management of any persistent palpable findings should be based on the clinical level of concern. Negative imaging findings should not preclude biopsy of any clinically suspicious palpable finding. The patient was provided with a written summary of the results at the time of the study. OVERALL ASSESSMENT -- BI-RADS 2 BENIGN END OF IMPRESSION Narrative 03/13/2017 8:52 AM EDT INDICATION: Screening. Questioned palpable abnormality right breast. History of right lumpectomy and radiation for breast cancer. TECHNIQUE: Digital Mammography and tomosynthesis were used to obtain images. Computer Aided Detection was used to aid in interpretation and volumetric breast density assessment may have been used as an aid in evaluating breast density. COMPARISON: Comparison is made with relevant prior imaging in PACS. Breast Composition: heterogeneously dense which may obscure small masses. FINDINGS: Left Breast: No significant masses, suspicious calcifications, or other abnormalities are seen. Right Breast: Post-treatment changes of prior lumpectomy and radiation are stable. No significant masses, suspicious calcifications, or other abnormalities are seen. Targeted ultrasound was performed at the site of palpable abnormality as indicated by the patient at the 10:00 axis of 13 cm from the nipple, approximately 1 cm below the axillary dissection's scar. There is no sonographic abnormality in the area Procedure Note Tania Norwood MD - 03/13/2017 INDICATION: Screening. Questioned palpable abnormality right breast. History of right lumpectomy and radiation for breast cancer. TECHNIQUE: Digital Mammography and tomosynthesis were used to obtain images. Computer Aided Detection was used to aid in interpretation and volumetric breast density assessment may have been used as an aid in evaluating breast density. COMPARISON: Comparison is made with relevant prior imaging in PACS. Breast Composition: heterogeneously dense which may obscure small masses. FINDINGS: Left Breast: No significant masses, suspicious calcifications, or other abnormalities are seen. Right Breast: Post-treatment changes of prior lumpectomy and radiation are stable. No significant masses, suspicious calcifications, or other abnormalities are seen. Targeted ultrasound was performed at the site of palpable abnormality as indicated by the patient at the 10:00 axis of 13 cm from the nipple, approximately 1 cm below the axillary dissection's scar. There is no sonographic abnormality in the area IMPRESSION: Left Breast - Category 1. Negative, no mammographic evidence of malignancy. Recommend routine screening. Right Breast - Category 2. S/P lumpectomy and radiation therapy. Benign, no evidence of malignancy. Recommend routine screening. Further management of any persistent palpable findings should be based on the clinical level of concern. Negative imaging findings should not preclude biopsy of any clinically suspicious palpable finding. The patient was provided with a written summary of the results at the time of the study. OVERALL ASSESSMENT -- BI-RADS 2 BENIGN END OF IMPRESSION us Kenia Busch MD IMG US BREAST Final Resu lt documented in this encounter Visit Diagnoses Diagnosis Lump in female breast Lump or mass in breast Lump in female breast Lump or mass in breast documented in this encounter Care Teams Culinary Internship Relationship Specialty Start Date End Date Efrem Adams MD [address] [address] PCP - General 12/22/14 Kerri Gunter RN [address] [address] [email or web address] Primary Infusion Nurse 01/11/15 Kenia Busch MD [address] [place] [email or web address] Medicine 03/07/15 Mallorie Urbnia NP [address] [place] [address] [address] [place] [address] [email or web address] Nurse Practitioner 03/07/15 documented as of this encounter Additional Source Comments The information contained in this document represents components of the legal health record. It is not the complete legal health record.[facility]
== END 2025-03-09 09:38 | disposition home or self-care (01) ==
LOC: HO.MAMMO 09:37
PROVIDERS: PCP Internal Medicine Medical Oncology; Visit Provider Internal Medicine Medical Oncology
DX: M81.0 Age-related osteoporosis without current pathological fracture (principal)
CPT/HCPCS: 77080

== ENCOUNTER → 2025-03-09 10:00 | Outpatient (BNV) | payer OTHER, SELFPAY | PROVIDERS: PCP Internal Medicine Medical Oncology; Visit Provider Radiology Diagnostic Radiology | DX: E28.39 Other primary ovarian failure (principal) | CPT/HCPCS: 77080 ==

== ENCOUNTER 2025-05-17 06:41 | Outpatient (REF) | payer OTHER, SELFPAY ==
--- OUTSIDE RECORDS SUMMARY | 2024-01-16 06:00 | XMS_ITS ---
Author Organization Justice Baez III, MD Address [address] [place] [address] Care Team Providers Care General Manager Name Role Phone Dr. Justice Baez III Primary Care Provider Allergies Allergen (clinical drug ingredient) Drug/Non Drug Allergy documented on EMR Reaction Allergy Type Onset Date Status No Known Drug Allergy Unknown Drug Allergy Active REASON FOR VISIT Annual Exam Medications Medication SIG (Take, Route, Frequency, Duration) Notes Start Date End Date Status Triamcinolone Acetonide 0.1 % 1 application Externally Twice a day 01/10/2023 Active Alendronate Sodium 70 MG TAKE 1 TABLET B Y MOUTH ONE TIME PER WEEK Active Multivitamins - Orally Acti ve Social History Tobacco Use: Social History Observation Description Date Details (start date - stop date) Former Smoker NA - NA Sex Assigned At : Social History Observation Description Sex Assigned At Female Tobacco Use/Smoking Question Answer Notes Patient is a former smoker How long has it been since you last smoked? 5-10 years Additional Findings: Tobacco Non-User Ex-cigaret te smoker Alcohol Screen Question Answer Notes Did you have a drink contain ing alcohol in the past year? Yes How often did you have a dri nk containing alcohol in the past year? 2 to 3 times a week (3 points) How many drinks did you have on a typical day when you were drinking in the past year? 3 or 4 drinks (1 point) How often did you have 6 or more drinks on one occasion in the past year? Never (0 point) Points 4 Interpretation Positive Vital Signs Temperature 98.5 degrees Fahrenheit 01/16/20 24 Blood pressure systolic 132 mm Hg 01/16/20 24 Blood pressure diastolic 78 mm Hg 024 Heart Rate 81 /min 01/16/2024 Height 67 in 01/16/2024 Weight 164 lbs 01/16/2024 BMI 25.68 kg/m2 01/16/2024 Encounters Encounter Location Date Provider Diagnosis Justice Baez III, MD [address] [place] [address] [address] [place], [place] [id number] 01/16/2024 Justice Baez Other hyperlipidemia E78.49 ; Malignant neoplasm of unspecified site of right female breast C50.911 ; Estrogen receptor positive status [ER+] Z17.0 ; Bursitis of left shoulder M75.52 ; Onychomycosis B35.1 ; Factor V Leiden D68.51 ; Osteoporosis, unspecified osteoporosis type, unspecified pathological fracture presence M81.0 ; Overweight (BMI 25.0-29.9) E66.3 and Former smoker Z87.891 Assessments Encounter Date Diagnosis (ICD Code) Assessment Notes Treat ment Notes Treatment Clinical Notes 01/16/2024 Other hyperlipidemia (ICD-10 - E78.49) Fasting lipid profile has been ordered. 01/16/2024 Malignant neoplasm of unspecified site of right female breast (ICD-10 - C50.911) There was no sign of a new primary are very current today. Surveillance will continue. She will continue with annual mammography. 01/16/2024 Estrogen receptor positive status [ER+] (ICD-10 - Z17.0) There has been no recurrence of the breast cancer and no new primary. She will undergo annual mammography. 01/16/2024 Bursitis of left shoulder (ICD-10 - M75.52) The pain in the shoulder has resolved and she is now able to conduct all of the activities of daily life without pain. 01/16/2024 Onychomycosis (ICD-10 - B35.1) She continues on terbinafine without any complaint. 01/16/2024 Factor V Leiden (ICD-10 - D68.51) There have been no cases of venous thromboembolism or of arterial occlusion since her last visit her and her family. I have recommended she take 81 mg of aspirin on a daily basis. Several members of her family are anticoagulated. This patient has never had a venous or arterial thrombosis. If that occurs, she will need anticoagulation lifelong. 01/16/2024 Osteoporosis, unspecified osteoporosis type, unspecified pathological fracture presence (ICD-10 - M81.0) She will continue on alendronate. She is asymptomatic. She will continue on calcium and vitamin D. 01/16/2024 Overweight (BMI 25.0-29.9) (ICD-10 - E66.3) Her body mass index is very slightly over 25. I recommended a healthy Mediterranean diet and stabilizing her weight at this level. 01/16/2024 Former smoker (ICD-10 - Z87.891) She is highly motivated not to smoke. We discussed a plan to prevent relapse in times of stress or illness. Plan Of Treatment Medication Medication Name Sig Start Date Stop Date Notes Triamcinolone Acetonide 0.1 % 1 applicat ion Externally Twice a day 01/10/2023 Alendronate Sodium 70 MG TAKE 1 TABLET B Y MOUTH ONE TIME PER WEEK Multivitamins - Orally Next Appt Details Follow Up: 6 Months, Reason: OV Provider Name:Justice Baez , 05/19/2025 09:15:00 AM, [address] [place] [address] [address], [place], [phone], Provider Name:Justice Baez , 01/24/2026 09:00:00 AM, [address] [place] [address] SAUR[address] SAND[place], [place], [id number], Progress Notes * Baljinder GANDARADOB:1964 (58 yo F)Acc No.[id number]:01/16/2024 Progress Notes Patient: Baljinder Gomez Provider: Lexy Baez MD :1965 A ge:58 Y S ex:Female Date:01/16/2024 Address:[address] [place] [address] [id number] Subjective: * Chief Complaints: * A nnual Exam * HPI: D epression Screening: She returns to the office at the age of 58 for an annual physical examination. She is feeling well today. She has had no new issues since her last visit. She is doing breast self examination regularly with no findings in either breast. The bursitis in her left shoulder has resolved. She has had no blood clots. She continues to have onychomycosis of the nnails of the first toes. There have been no blood clots in her family. Her treatment for osteoporosis was continued. PHQ-9 L ittle interest or pleasure in doing things?Not at all F eeling down, depressed, or hopeless N ot at all T rouble falling or staying asleep, or sleeping too much N ot at all F eeling tired or having little energy N ot at all P oor appetite or overeating N ot at all F eeling bad about yourself or that you are a failure, or have let yourself or your family down N ot at all T rouble concentrating on things, such as reading the newspaper or watching television N ot at all M oving or speaking so slowly that other people could have noticed; or the opposite, being so fidgety or restless that you have been moving around a lot more than usual N ot at all T houghts that you would be better off or of hurting yourself in some way N ot at all T otal Score 0 C OVID-19 Screening: Questions H ave you experienced fever, chills, cough, sore throat, shortness of breath, difficulty breathing, muscle aches, loss of taste or smell? N o H ave you been exposed to the virus within the last 10 days? N o H ave you travelled internationally in the last 10 days? N o H ave you been exposed to COVID-19 in the past? Y es S ASHISH Questions: SDOH Questions I n the past year have you been worried about losing your housing? N o I n the past year have you or any family members you live with been unable to get any of the following when it was really needed? Check all that apply: N one * ROS: G eneral/Constitutional: pain o nly normal aches and pains. C hills d enies.?Fatigue a dmits. F ever d enies. E NT: Decreased hearing d enies. R espiratory: Cough d enies. C ardiovascular: Chest pain with exertion d enies. D yspnea on exertion?denies. S hortness of breath d enies. G astrointestinal: Constipation o ccasional. D ecreased appetite d enies. D iarrhea d enies. H eartburn o ccasional. N ausea d enies. R ectal bleeding d enies. V omiting d enies. H ematology: bruising d enies. p etechiae d enies. S wollen glands n one have been noted. G enitourinary: Frequent urination d enies. M usculoskeletal: Muscle aches d enies. P ainful joints d enies. S ciatica d enies. W eakness d enies. S kin: Itching d enies. R sherrie d enies. S kin lesion(s)?denies. N eurologic: Difficulty speaking d enies. D izziness d enies.?Headache d enies. L ow back pain d enies. P sychiatric: Depressed mood d enies. * Medical History: * Surgical History: a ppendectomy 1970right breast lumpectomy 2002-2012colonoscopy [facility]. Dr. Justice Brown tubular adenoma 2017endometrial biopsy, Dr. Mauricio Adams 2017 * Hospitalization/Major Diagno stic Procedure: D enies Past Hospitalization * Family History: F ather: 64 yrs, Alcoholism, dementia. M other: 75 yrs, Breast cancer, chronic renal failure, diverticulitis with perforation, Crohn's disease, diagnosed with HTN, Cancer. 1 brother(s) , 1 sister(s) - healthy. 1 son(s) , 1 daughter(s) - healthy. . She has factor V Leiden and other family members have been diagnosed with this mutation as well. Her mother had breast cancer. A maternal grandmother had breast cancer. Her brother has factor V Leiden. Her sister is anticoagulated for DVT. She has 2 children. Damion, 25, and Chau, 23, who are healthy and well. She has 8 grandchildren who are healthy and well. She is not aware of any family history of mental illness or substance abuse. Her father had an addiction to alcohol. * Social History: T obacco Use: T obacco Use/Smoking P atient is a f ormer smoker H ow long has it been since you last smoked??5-10 years A dditional Findings: Tobacco Non-User E x-cigarette smoker D rugs/Alcohol: D rugs H ave you used drugs other than those for medical reasons in the past 12 months? N o Alcohol Screen D id you have a drink containing alcohol in the past year? Y es H ow often did you have a drink containing alcohol in the past year? 2 to 3 times a week (3 points) H ow many drinks did you have on a typical day when you were drinking in the past year? 3 or 4 drinks (1 point) H ow often did you have 6 or more drinks on one occasion in the past year? N ever (0 point) P oints 4 I nterpretation P ositive S he is to [place] for many years. He is a prec[employer] i police sergeant in [place]. Her son, Shekhar is a precinct i police sergeant in [place], [place]. She lives with her at [place], [place]. * Medications: T akingMultivitamins - Capsule Orally Triamcinolone Acetonide 0.1 % Cream 1 application Externally Twice a dayAlendronate Sodium 70 MG Tablet TAKE 1 TABLET BY MOUTH ONE TIME PER WEEK Medication List reviewed and reconciled with the patientTaking Multivitamins - Capsule Orally Taking Triamcinolone Acetonide 0.1 % Cream 1 application Externally Twice a dayTaking Alendronate Sodium 70 MG Tablet TAKE 1 TABLET BY MOUTH ONE TIME PER WEEK Medication List reviewed and reconciled with the patient * Allergies: N o Known Drug Allergyno[Allergies Verified] Objective: * Vitals: H t: 67, Wt: 164, BMI:25.68, BP: 132/78, HR: 81, Temp: 98.5, Wt-k.39. * Examination: G eneral Examination: GENERAL APPEARANCE: p arias, well nourished, well developed, in no acute distress, calm and relaxed , overweight , woman. HEAD: a traumatic, normocephalic. EYES: e fannie, perrla, anicteric, conjugate. EARS: n ormal. NOSE: s eptum intact. ORAL CAVITY: n ormal, unremarkable. NECK/THYROID: n o jugular venous distention, no carotid bruit, thyroid normal. LYMPH NODES: n o enlarged lymph nodes,spleen normal. SKIN: n o suspicious lesions, anicteric. HEART: n o clicks, gallops, murmurs, or rubs, regular rhythm, S1, S2 normal, no s3, or vascular bruits. LUNGS: c lear to auscultation . BREASTS: T o be done by BILL BOARD POSTER at her request. ABDOMEN: b owel sounds normal, no ascites, no organomegaly, no mass , overweight. RECTAL EXAM: T o be done by BILL BOARD POSTER. MUSCULOSKELETAL: e xtremities unremarkable, no clubbing, cyanosis or edema. PERIPHERAL PULSES: n ormal. NEUROLOGIC: a lert and oriented, cranial nerves 2-12 grossly intact, deep tendon reflexes 2+ symmetrical, motor strength normal upper and lower extremities, sensory exam intact. PSYCH: a lert, oriented. Assessment: * Assessment: 1. O ther hyperlipidemia - E78.49, Fasting lipid profile has been ordered. 2 . M alignant neoplasm of unspecified site of right female breast - C50.911, There was no sign of a new primary are very current today. Surveillance will continue. She will continue with annual mammography. 3 . E strogen receptor positive status [ER+] - Z17.0, There has been no recurrence of the breast cancer and no new primary. She will undergo annual mammography. 4 . B ursitis of left shoulder - M75.52, The pain in the shoulder has resolved and she is now able to conduct all of the activities of daily life without pain. 5 . O nychomycosis - B35.1, She continues on terbinafine without any complaint. 6 . F actor V Leiden - D68.51, There have been no cases of venous thromboembolism or of arterial occlusion since her last visit her and her family. I have recommended she take 81 mg of aspirin on a daily basis. Several members of her family are anticoagulated. This patient has never had a venous or arterial thrombosis. If that occurs, she will need anticoagulation lifelong. 7 . O steoporosis, unspecified osteoporosis type, unspecified pathological fracture presence - M81.0, She will continue on alendronate. She is asymptomatic. She will continue on calcium and vitamin D. 8 . O verweight (BMI 25.0-29.9) - E66.3, Her body mass index is very slightly over 25. I recommended a healthy Mediterranean diet and stabilizing her weight at this level. 9 . F ormer smoker - Z87.891, She is highly motivated not to smoke. We discussed a plan to prevent relapse in times of stress or illness. Plan: * Treatment: * Procedure Codes: * Preventive Medicine: Counseling: C are goal follow-up plan: Counseling for abnormal BMI given Y es Above Normal BMI Follow-up D ietary management education, guidance, and counseling, Dietary needs education, Exercise promotion: strength training, Exercise promotion: stretching, Feeding regime, Giving encouragement to exercise, Lifestyle education regarding diet, Nutrition / feeding management, Nutrition therapy, Prescribed activity/exercise education, Prescribed diet education, Prescribed dietary intake, Special diet education, Weight monitoring , Intervention, Order not done: Medical or Other reason not done S moking/Tobacco Use Patient counseled on the dangers of tobacco use and urged to quit. 0 01/16/2024 * Follow Up: 6 Months (Reason: OV) * Images: * Sign off status: Completed true * Provider: Lexy Baez MD Date: 0 01/16/2024 Generated for Markel lackey/Russell/eTransmitting on: 0 05/17/2025 06:45 AM EDT History and Physical Notes * HPI (History of Present Illness) Category Sub-Category Detail Notes Depression Screening PHQ-9 Little inte rest or pleasure in doing things: Not at all Feeling down, depressed, or hopeless: No t at all Trouble falling or staying asleep, or sl eeping too much: Not at all Feeling tired or having little energy: N ot at all Poor appetite or overeating: Not at all Feeling bad about yourself o r that you are a failure, or have let yourself or your family down: Not at all Trouble concentrating on thi ngs, such as reading the newspaper or watching television: Not at all Moving or speaking so slowly that other people could have noticed; or the opposite, being so fidgety or restless that you have been moving around a lot more than usual: Not at all Thoughts that you would be b matthew off or of hurting yourself in some way: Not at all Total Score: 0 COVID-19 Screening Questions Have you had any new onset fever, chills, cough, congestion, sore throat, shortness of breath, muscle aches?: No Have you been exposed to the virus withi n the last 10 days?: No Have you travelled internationally in [facility] last 10 days?: No Have you been exposed to COVID-19 in the past?: Yes SDOH Questions SDOH Questions In the past year have you been worried about losing your housing?: No In the past year have you or any family members you live with been unable to get any of the following when it was really needed? Check all that apply:: None Examination Category Sub-Category Detail Notes General Examination GENERAL APPEARANCE: pleasant , well nourished, well developed, in no acute distress, calm and relaxed , overweight , woman HEAD: atraumatic, normocep halic EYES: eomi, perrla, anicte unique, conjugate EARS: normal NOSE: septum intact NECK/THYROID: no jugular venous di stention, no carotid bruit, thyroid normal HEART: no clicks, gallops, murmurs, or rubs, regular rhythm, S1, S2 normal, no s3, or vascular bruits LUNGS: clear to auscultatio n ABDOMEN: bowel sounds normal, no ascites, no organomegaly, no mass , overweight NEUROLOGIC: alert and oriented, cranial nerves 2-12 grossly intact, deep tendon reflexes 2+ symmetrical, motor strength normal upper and lower extremities, sensory exam intact SKIN: no suspicious lesion s, anicteric PERIPHERAL PULSES: normal BREASTS: To be done by BILL BOARD POSTER at her request MUSCULOSKELETAL: extremities unremark able, no clubbing, cyanosis or edema LYMPH NODES: no enlarged lymph no cody,spleen normal RECTAL EXAM: To be done by BILL BOARD POSTER PSYCH: alert, oriented ORAL CAVITY: normal, unremarkable
--- OUTSIDE RECORDS SUMMARY | 2024-07-23 05:00 | XMS_ITS ---
Author Organization Justice Baez III, MD Address [address] [place] [address] [place] [address] Care Team Providers Care Job Placement Officer Name Role Phone Dr. Justice Baez III Primary Care Provider Allergies Allergen (clinical drug ingredient) Drug/Non Drug Allergy documented on EMR Reaction Allergy Type Onset Date Status No Known Drug Allergy Unknown Drug Allergy Active REASON FOR VISIT Musculoskeletal right costochondral pain, History of right breast cancer, Factor V Leiden mutation Medications Medication SIG (Take, Route, Frequency, Duration) [...] Additional Findings: Tobacco Non-User Ex-cigaret te smoker Vital Signs Temperature 97.7 degrees Fahrenheit 07/23/20 24 Blood pressure systolic 120 mm Hg 07/23/20 24 Blood pressure diastolic 60 mm Hg 024 Heart Rate 68 /min 07/23/2024 Height 67 in 07/23/2024 Weight 164 lbs 07/23/2024 BMI 25.68 kg/m2 07/23/2024 Encounters Encounter Location Date Provider Diagnosis Justice Baez III, MD [address] [place] [address] DR MORALEZ, NISHANT [id number] 07/23/2024 Justice Sasha Other hyperlipidemia E78.49 ; Overweight (BMI 25.0-29.9) E66.3 ; Factor V Leiden D68.51 ; Osteoporosis, unspecified osteoporosis type, unspecified pathological fracture presence M81.0 ; Former smoker Z87.891 and Malignant neoplasm of unspecified site of right female breast C50.911 Assessments Encounter Date Diagnosis (ICD Code) Assessment Notes Treat ment Notes Treatment Clinical Notes 07/23/2024 Other hyperlipidemia (ICD-10 - E78.49) She continues to decline my offer of a prescription for statin medication. Her total cholesterol has been consistently elevated. She is aware of the risks and benefits. 07/23/2024 Overweight (BMI 25.0-29.9) (ICD-10 - E66.3) She is very slightly overweight. We have discussed a weight reduction regimen. We have discussed her diet and nutrition. We made a plan to lose weight at a rate of one half of a pound per week. 07/23/2024 Factor V Leiden (ICD-10 - D68.51) She has had no symptoms of arterial or venous blood clots since her last visit. 07/23/2024 Osteoporosis, unspecified osteoporosis type, unspecified pathological fracture presence (ICD-10 - M81.0) He continues to take her alendronate without side effects. Will have a bone density every 2 years. 07/23/2024 Former smoker (ICD-1 0 - Z87.891) She is highly motivated not to smoke. We discussed a plan to prevent relapse in times of stress or illness. 07/23/2024 Malignant neoplasm o f unspecified site of right female breast (ICD-10 - C50.911) There was no sign of a new primary are very current today. Surveillance will continue. She will continue with annual mammography. Plan Of Treatment Medication Medication Name Sig Start Date Stop Date Notes Triamcinolone Acetonide 0.1 % 1 applicat ion Externally Twice a day 01/10/2023 Alendronate Sodium 70 MG TAKE 1 TABLET B Y MOUTH ONE TIME PER WEEK Multivitamins - Orally Pending Test Test Name Order Date PROFILE, FASTING (COMPREHENSIVE METABOLI C) 07/23/2024 CBC WITH AUTO DIFF 07/23/2024 Lipid Panel 07/23/2024 Vitamin D 25-OH Total 07/23/2024 Next Appt Details Follow Up: As Scheduled, Jan 6 at 9:00 AM, Reason: OV, Annual exam Provider Name:Justice Baez , 05/19/2025 09:15:00 AM, [address] [place] [address] [address], [place], [phone], Provider Name:Justice Rogelne , 01/24/2026 09:00:00 AM, [address] [place] [address] [address], [place], [phone], Progress Notes * Usha GANDARAJoãoelizaDOB:1964 (59 yo F)Acc No.[id number]:07/23/2024 Progress Notes Patient: Baljinder PEREYRA Provider: Lexy Baez MD :1965 A ge:59 Y S ex:Female Date:07/23/2024 Address:[address] [place] [address] ANNEMARIEAlexia Donn [id number] Subjective: * Chief Complaints: * M usculoskeletal right costochondral painHistory of right breast cancerFactor V Leiden mutation * HPI: C OVID-19 Screening: Questions H ave you [...] to COVID-19 in the past? Y es * : The patient, a 59-year-old female, presented with a complaint of pain in her side, specifically in the area of her ribs. The pain was described as sharp and significant, and was localized to a specific point on her side. The pain was not constant, but was triggered by certain movements such as bending. The patient also reported a history of a lump on her lip, which had been removed by a aircraft launch and recovery technician and had not recurred. She had recently undergone a mammogram, the results of which were normal. The patient also reported a history of cataracts, which were not yet mature. She had no other significant symptoms. Upon examination the pain in her side was inflammatory arising at muscle attachment on the lower right ribs. She was reassured. There is no sign of recurrent breast cancer or a new primary. He has had no symptoms of arterial or venous blood clot. She seems stable today and will be seen 3 times a year due to the number of her medical issues. * ROS: G eneral/Constitutional: Admits p ain, R ight chest wall, Left shoulder which is chronic. C hills d enies. F atigue a dmits. F ever d enies. ? E NT: Decreased hearing d enies. R espiratory: Cough d enies. C ardiovascular: Chest pain with exertion d enies. D yspnea on exertion?denies. S hortness of breath d enies. G astrointestinal: Constipation o ccasional. D ecreased appetite d enies. D iarrhea d enies. H eartburn d enies. N ausea d enies. R ectal bleeding d enies. V omiting d enies. H ematology: bruising d enies. p etechiae d enies. S wollen glands n one have been noted. G enitourinary: Frequent urination a t night. M usculoskeletal: Muscle aches d enies. P ainful joints L eft shoulder, that is moderate. S ciatica d enies. W eakness d enies. S kin: Itching d enies. R sherrie d enies. S kin lesion(s)?denies. N eurologic: Difficulty speaking d enies. D izziness d enies.?Headache d enies. L ow back pain d enies. P sychiatric: Depressed mood d enies. * Medical History: * Surgical History: a ppendectomy 1970right breast lumpectomy 2002-2012colonoscopy [facility]. Dr. Justice Brown tubular adenoma 2017endometrial biopsy, Dr. Mauricio Adams 2017No history * Hospitalization/Major Diagno stic Procedure: N o history * Family History: F ather: 64 yrs, Alcoholism, dementia. M other: 75 yrs, Breast cancer, chronic renal failure, diverticulitis with perforation, Crohn's disease, diagnosed with Cancer, HTN. Children: alive. S iblings: alive. 1 brother(s) , 1 sister(s) - healthy. [...] T obacco Use: T obacco Use/Smoking P atfilippo is a f ormer smoker H ow long has it been since you last smoked??5-10 years A dditional Findings: Tobacco Non-User E x-cigarette smoker S he is to Luis for many years. He is a special police in [place]. Her son, Shekhar is a special police in [place], [place]. She lives with her at [place], [place]. * Medications: T akingMultivitamins - Capsule Orally Triamcinolone Acetonide 0.1 % Cream 1 application Externally Twice a day Alendronate Sodium 70 MG Tablet TAKE 1 TABLET BY MOUTH ONE TIME PER WEEK Medication List reviewed and reconciled with the patientTaking Multivitamins - Capsule Orally Taking Triamcinolone Acetonide 0.1 % Cream 1 application Externally Twice a day Taking Alendronate Sodium 70 MG Tablet TAKE 1 TABLET BY MOUTH ONE TIME PER WEEK Medication List reviewed and reconciled with the patient * Allergies: N o Known Drug Allergyno[Allergies Verified] Objective: * Vitals: H t: 67, Wt: 164, BMI:25.68, BP: 120/60, HR: 68, Temp: 97.7, Wt-k.39. * Examination: G eneral Examination: GENERAL APPEARANCE: p leasant, well nourished, well developed, in no acute distress, calm and relaxed, overweight, woman. HEAD: a traumatic, normocephalic. EYES: e [...] LUNGS: c lear to auscultation . BREASTS: N ot examined. ABDOMEN: b owel sounds normal, no ascites, no organomegaly, no mass, overweight. RECTAL EXAM: n ot examined. MUSCULOSKELETAL: e xtremities unremarkable, no clubbing, cyanosis or edema,Right lower chest wall tender to rotation spine and pressure. PERIPHERAL PULSES: n ormal. NEUROLOGIC: a lert and oriented, cranial nerves 2-12 grossly intact, deep tendon reflexes 2+ symmetrical, motor strength normal upper and lower extremities, sensory exam intact. PSYCH: a lert, oriented. Assessment: * Assessment: 1. O ther hyperlipidemia - E78.49 (Primary) N otes :She continues to decline my offer of a prescription for statin medication. Her total cholesterol has been consistently elevated. She is aware of the risks and benefits. 2 . O verweight (BMI 25.0-29.9) - E66.3 N otes :She is very slightly overweight. We have discussed a weight reduction regimen. We have discussed her diet and nutrition. We made a plan to lose weight at a rate of one half of a pound per week. 3 . F actor V Gwyn - D68.51 N otes :She has had no symptoms of arterial or venous blood clots since her last visit. 4 . O steoporosis, unspecified osteoporosis type, unspecified pathological fracture presence - M81.0 N otes :He continues to take her alendronate without side effects. Will have a bone density every 2 years. 5 . F ormer smoker - Z87.891 N otes :She is highly motivated not to smoke. We discussed a plan to prevent relapse in times of stress or illness. 6 . M alignant neoplasm of unspecified site of right female breast - C50.911? Notes :There was no sign of a new primary are very current today. Surveillance will continue. She will continue with annual mammography. Plan: * Treatment: 2. O verweight (BMI 25.0-29.9) L AB: PROFILE, FASTING (COMPREHENSIVE METABOLIC) L AB: CBC WITH AUTO DIFF L AB: Lipid Panel L AB: Vitamin D 25-OH Total 3. F actor V Leiden L AB: PROFILE, FASTING (COMPREHENSIVE METABOLIC) L AB: CBC WITH AUTO DIFF L AB: Lipid Panel L AB: Vitamin D 25-OH Total 4. O steoporosis, unspecified osteoporosis type, unspecified pathological fracture presence L AB: PROFILE, FASTING (COMPREHENSIVE METABOLIC) L AB: CBC WITH AUTO DIFF L AB: Lipid Panel L AB: Vitamin D 25-OH Total * Procedure Codes: * Preventive Medicine: Counseling: [...] of tobacco use and urged to quit. 1 09/23/2023 * Follow Up: A s Scheduled, January 21 at 9:00 AM (Reason: OV, Annual exam) * Images: * Sign off status: Completed true * Provider: Lexy Baez MD Date: 09/23/2023 Generated for Ryleei ng/Russell/eTransmitting on: 0 05/17/2025 06:45 AM EDT History and Physical Notes * HPI (History of Present Illness) Category Sub-Category Detail Notes COVID-19 Screening Questions Have you had any new onset fever, chills, cough, congestion, sore throat, shortness of breath, muscle aches?: No Have you been exposed to the virus withi n the last 10 days?: No Have you travelled internationally in last 10 days?: No Have you been exposed to COVID-19 in the past?: Yes Examination Category Sub-Category Detail Notes General Examination GENERAL APPEARANCE: pleasant , well nourished, well developed, in no acute distress, calm and relaxed, overweight, woman HEAD: atraumatic, normocep halic EYES: eomi, perrla, anicte unique, conjugate EARS: normal NOSE: septum intact NECK/THYROID: no jugular venous di stention, no carotid bruit, thyroid normal HEART: no clicks, gallops, murmurs, or rubs, regular rhythm, S1, S2 normal, no s3, or vascular bruits LUNGS: clear to auscultatio n ABDOMEN: bowel sounds normal, no ascites, no organomegaly, no mass, overweight NEUROLOGIC: alert and oriented, cranial nerves 2-12 grossly intact, deep tendon reflexes 2+ symmetrical, motor strength normal upper and lower extremities, sensory exam intact SKIN: no suspicious lesion s, anicteric PERIPHERAL PULSES: normal BREASTS: Not examined MUSCULOSKELETAL: extremities unremark able, no clubbing, cyanosis or edema,Right lower chest wall tender to rotation spine and pressure LYMPH NODES: no enlarged lymph no cody,spleen normal RECTAL EXAM: not examined PSYCH: alert, oriented ORAL CAVITY: normal, unremarkable
--- OUTSIDE RECORDS SUMMARY | 2025-01-21 05:00 | XMS_ITS ---
Author Organization Justice Baez III, MD Address [address] [place] [address] Care Team Providers Care Picture Hanger Name Role Phone Dr. Justice Baez III [...] Date Provider Diagnosis Justice Baez III, MD [address] [place] [address] [place] [address] 01/21/2025 Justice Baez Other hyperlipidemia E78.49 ; [...] Up: 4 Months, Reason: OV Provider Name:Justice Baez , 05/19/2025 09:15:00 AM, [address] [place] [address] SAURAV SANDERS, NISHANT CARBAJAL, [address], Provider Name:Justice Baez , 01/24/2026 09:00:00 AM, [address] [place] [address] SAURAV SANDERS, NISHANT CARBAJAL, [address], Progress Notes * Baljinder GANDARADOB:1964 (59 yo F)Acc No.[id number]:01/21/2025 Progress Notes Patient: Baljinder PEREYRA Provider: Lexy Baez MD :1965 A ge:59 Y S ex:Female Date:01/21/2025 Address:[address] [place], [place] [id number] Subjective: * Chief Complaints: * A nnual Exam * HPI: D epression Screening: She comes to the office today at the age of 59 for her annual physical examination and visit. Her last mammogram was May 2024 at [facility]. She is up-to-date with colonoscopy. She [...] was really needed? Check all that apply: D tonia to answer * ROS: G eneral/Constitutional: pain [...] History: a ppendectomy 1970right breast lumpectomy 2002-2012colonoscopy [facility]. Dr. Justice Brown tubular adenoma 2017endometrial [...] Luis for many years. He is a forward air controller/air officer in [place]. Her son, Shekhar is a forward air controller/air officer in [place], [place]. She lives with her at [place], [place]. * Medications: T akingMultivitamins - Capsule [...] 01/21/2025 Generated for Markel lackey/Russell/Kinjalitting on: 0 05/17/2025 06:45 AM EDT History [...]
--- OUTSIDE RECORDS SUMMARY | 2025-05-17 06:45 | XMS_ITS | Clinical Summary ---
Author Organization [facility] Address [address] [place] [address] Care Team Providers Care Microbiology Supervisor Name Role Phone Unavailable Primary Care Provider Unavailabl e Source Comments PLEASE NOTE, if this patient is a minor, it may be UNLAWFUL to discuss sensitive information that is contained in these records (such as FAMILY PLANNING, MENTAL HEALTH or SUBSTANCE ABUSE) with the minor patient's parent or other person without the patient's specific authorization.[facility] Immunizations Immunization Administration Dates Next Due Moderna COVID-19 Vaccine, re d cap blue label, 12+ Primary Series 01/01/2021,11/28/2020 Social History Tobacco Use Types Packs/Day Years Used Date Smoking Tobacco: Never Assessed Social Connections Answer Date Recorded Social Connections and Isolation 0 01/16/2024 Financial Resource Strain Answer Date R ecorded Financial Resource Strain 0 2023 Stress Answer Date Recorded Stress 0 01/16/2024 Physical Activity Answer Date Recorded Physical Activity 0 01/16/2024 Food Insecurity Answer Date Recorded Food 0 01/16/2024 Transportation Needs Answer Date Record ed Transportation 0 01/16/2024 Housing Stability Answer Date Recorded Housing 0 01/16/2024 Safety and Environment Answer Date Patrick rded Safety 0 01/16/2024 Utilities Answer Date Recorded Utilities 0 01/16/2024 Employment Answer Date Recorded Employment 0 01/16/2024 Comments Unknown Sex and Gender Information Value Date Recorded Sex Assigned at Not on file Legal Sex Female 10:36 AM PDT Gender Identity Not on file Sexual Orientation Not on file Plan of Treatment Health Maintenance Due Date Last Done Comments Anxiety Screening 1965 Diabetes Screening 1965 HPV Screening 1965 Hepatitis C Screening 1965 Lipid Screening 1965 Pap + HPV 1965 Tobacco Screening 1965 HIV Screening 1980 Hypertension Screening (#1) 1983 Cervical Cancer Screening 1986 Pap Smear 1986 Breast Cancer Screening (Mammogram) 2005 CT Colonography 2010 Colonoscopy 2010 Colorectal Cancer Screening 2010 FIT/gFOBT 2010 Fecal DNA 2010 Flexible Sigmoidoscopy 2010 Imm-Pneumococcal 50+ (1 of 1 - PCV) 2015 Imm-Zoster, Recombinant (1 o f 2) 2015 Alcohol and Drug Screen 08/18/2024 Depression Annual Screen 08/18/2024 Xys-SKUUS-71 (3 - season) 2025 01/01/2021, 11/28/2020 Imm-Influenza (#1) 2025 06/17/2019, 06/07/2010 Imm-DTaP/Tdap/Td (2 - Td or Tdap) 02/12/2029 02/12/2019 Cervical Ablation/Cold-Knife Conization Discontinued Cervical Cryotherapy Discontinued Colposcopy Discontinued Endometrial Biopsy Discontinued Excision/Leep Discontinued HPV Genotyping Discontinued Imm-Hepatitis B Aged Out No longer el igible based on patient's age to complete this topic Vaginal Pap Discontinued Vulvoscopy Discontinued Insurance [facility] Member Subscriber Plan / Payer (Ef fective 2020-Present) Name:Abby Vaca Relation to Subscriber:Self Name:Abby Vaca Payer ID:[id number] Type:Indemnity Address: [facility] [address] [place] [address]
--- OUTSIDE RECORDS SUMMARY | 2025-05-17 06:45 | XMS_ITS | Encounter Summary ---
Author Organization [facility] Address [address] [place] [address] Phone Care Team Providers Care Hazard Waste Handler Name Role Phone Efrem Adams MD Primary Care Provider [phone] Kerri Gunter RN Unavailable [phone] Kenia Busch MD Unavailable [phone] Mallorie Urbina NP Unavailable [phone] Encounter Details Date Type Department Care Team (Late st Contact Info) Description 03/13/2017 Transcribe Orders [facility], [facility], [facility] [place] [address] [place] [address], 9[address] [place] [address] Kenia Busch MD [address] [place] [address] [email or web address] Social History Tobacco Use Types Packs/Day Years [...] on file documented as of this encounter Visit Diagnoses Not on filedocumented in this encounter Care Teams Hazard Waste Handler Relationship Specialty Start Date End Date Efrem Adams MD [address] [address] PCP - General 12/22/14 Kerri Gunter RN [address] [address] [email or web address] Primary Infusion Nurse 01/11/15 Kenia Busch MD [address] [place] [id number] [email or web address] Internal Medicine 03/07/15 Mallorie Urbina NP [address] [facility] [address] [place] [address] [email or web address] Nurse Practitioner 03/07/15 documented as of this encounter Additional Source Comments The information contained in this document represents components of the legal health record. It is not the complete legal health record.[facility]
--- OUTSIDE RECORDS SUMMARY | 2025-05-17 06:45 | XMS_ITS | Encounter Summary ---
Author Organization [facility] Address [address] [place] [address] Phone Care Team Providers Care Horse Riding Coach Or Instructor Name Role Phone Efrem Adams MD Primary Care Provider [phone] Kerri Gunter RN Unavailable [phone] Kenia Busch MD Unavailable [phone] Mallorie Urbina NP Unavailable [phone] Encounter Details Date Type Department Care Team (Late st Contact Info) Description 01/24/2015 Transcribe Orders [facility] [address] [address] Amisha Shirley [address] [place] [address]. [place] [address] [email or web address] Annual physical exam (Primary Dx) Social History Tobacco Use Types Packs/Day Years Used Date Smoking Tobacco: Every Day Comments Unknown Sex and Gender Information Value Date Recorded Sex Assigned at Not on file Legal Sex Female 5:00 PM EST Gender Identity Not on file Sexual Orientation Not on file documented as of this encounter Plan of Treatment Not on file documented as of this encounter Visit Diagnoses Diagnosis Annual physical exam- Primary Routine general medical examination at a health care facility documented in this encounter Care Teams Horse Riding Coach Or Instructor Relationship Specialty Start Date End Date Efrem Adams MD [address] [id number] PCP - General 12/22/14 Kerri Gunter, RN [address] [address] [email or web address] Primary Infusion Nurse 01/11/15 Kenia Busch MD [address] [place] [id number] [email or web address] Internal Medicine 03/07/15 Mallorie Urbina NP [address] [place] [address] [address] [place] [address] [email or web address] Nurse Practitioner 03/07/15 documented as of this encounter Additional Source Comments The information contained in this document represents components of the legal health record. It is not the complete legal health record.[facility]
--- OUTSIDE RECORDS SUMMARY | 2025-05-17 06:45 | XMS_ITS | Encounter Summary ---
Author Organization [facility] Address [address] [place] [address] Phone Care Team Providers Care Quencher Operator Name Role Phone Efrem Adams MD Primary Care Provider [phone] Kerri Gunter RN Unavailable [phone] Kenia Busch MD Unavailable [phone] Mallorie Urbina NP Unavailable [phone] Encounter Details Date Type Department Care Team (Late st Contact Info) Description 03/13/2017 Ancillary Orders [facility], [facility], [facility] [place] [address] [place] [address], 9th [place] [address] Kenia Busch MD [address] [place] [address] [email or web address] Lump in female breast Social History [...] breast documented in this encounter Care Teams Quencher Operator Relationship Specialty Start Date End Date Efrem Adams MD [address] [address] PCP - General 12/22/14 Kerri Gunter RN [address] [address] [email or web address] Primary Infusion Nurse 01/11/15 Kenia Busch MD [address] [place] [address] [email or web address] Internal Medicine 03/07/15 Mallorie Urbina NP [address] [place] [address] [address] [place] [address] [email or web address] Nurse Practitioner 03/07/15 documented as of this encounter Additional Source Comments The information contained in this document represents components of the legal health record. It is not the complete legal health record.[facility]
--- OUTSIDE RECORDS SUMMARY | 2025-05-17 06:45 | XMS_ITS | Clinical Summary ---
Author Organization [facility] Address [address] [place] [address] Phone Care Team Providers Care Assembler Piano Name Role Phone Efrem Adams MD Primary Care Provider [phone] Kerri Gunter RN Unavailable [phone] Kenia Busch MD Unavailable [phone] Mallorie Urbina NP Unavailable [phone] Allergies No known active allergies Medications cholecalciferol 2,000 unit Cap Take 1,000 Units by mouth daily. Active calcium carbonate 1,250 mg (500 mg elemental) capsule Take 1,250 mg by mouth daily. Active alendronate (FOSAMAX) 70 MG tablet Take 70 mg by mouth every 7 days. Take in the morning with a full glass of water, on an empty stomach, and do not take anything else by mouth or lie down for the next 30 min. Active Active Problems Problem Noted Date Diagnosed Date Malignant neoplasm of right breast 01/31/2015 Resolved Problems Problem Noted Date Diagnosed Date Resolved Date Breast cancer 05/06/2012 01/25/2015 Overview (10/08/2014): Malignant tumor of breast Immunizations Immunization Administration Dates Next Due Influenza, Unspecified Formulation 06/07/2010 Family History Medical History Relation Comments Breast cancer Maternal Grandmother Lung cancer Maternal Grandmother Breast cancer Mother Gallbladder disease Mother Heart disease Mother Relation Status Comments Maternal Grandmother Mother Social History Tobacco Use Types Packs/Day Years Used Date Smoking Tobacco: Every Day Alcohol Use Standard Drinks/Week Comments No 0 (1 standard drink = 0.6 oz pur e alcohol) Education Answer Date Recorded Are you interested in more education? Not on bill e 12/15/2022 Are you concerned about learning? Not on file 12/15/2022 No 12/15/2022 No 12/15/2022 Digital Access Answer Date Recorded No 01/10/2023 No 01/10/2023 No 01/10/2023 Reliable internet access at home? Not on file 01/10/2023 Device with a working camera? Not on file Comments Unknown Sex and Gender Information Value Date Recorded Sex Assigned at Not on file Legal Sex Female 5:00 PM EST Gender Identity Not on file Sexual Orientation Not on file Last Filed Vital Signs Vital Sign Reading Time Taken Comments Blood Pressure 129/63 03/13/2017 9:15 AM EDT Pulse 59 03/13/2017 9:15 AM EDT Temperature 36.9 C (98.4 F) 03/13/2017 9:15 AM EDT Respiratory Rate 16 03/13/2017 9:15 AM EDT Oxygen Saturation 99% 02/21/2016 3:0 0 PM EDT Inhaled Oxygen Concentration - - Weight 67.4 kg (148 lb 9.4 oz) 03/13/2017 9:15 AM EDT Height 169.1 cm (5' 6.58 ) 03/13/2017 9 :15 AM EDT copied from [facility] visit 07/05/16 Body Mass Index 23.57 03/13/2017 9:15 AM EDT Plan of Treatment Health Maintenance Due Date Last Done Comments LIPID PANEL 1965 DEPRESSION SCREENING 1977 SMOKING Hx and SMOKELESS TOBACCO SCREENING 1978 HEPATITIS C SCREENING 1983 HIV ONE-TIME SCREENING (18-65 YEARS) 1983 PNEUMOCOCCAL VACCINES (50+ years) (1 of 2 - PCV) 1984 ZOSTER VACCINES (1 of 2) 1984 PAP SMEAR 1986 COLOGUARD 2010 COLONOSCOPY 2010 COLORECTAL CANCER SCREENING 2010 FIT TEST 2010 FOBT 2010 SIGMOIDOSCOPY 2010 VIRTUAL COLONOSCOPY 2010 MAMMOGRAM 03/13/2019 03/13/2017, 07/0 01/2016, 01/25/2015, Additional history exists INFLUENZA VACCINE (#1) 2025 06/17/2019, 2009 COVID-19 VACCINE ( - season) 2025 01/01/2021, 11/28/2020 Adult Td,Tdap Booster 02/12/2029 02/12/2019 RSV VACCINE (1 - 1-dose 75+ series) 2040 HEPATITIS A VACCINES Aged Out No long er eligible based on patient's age to complete this topic HIB VACCINES Aged Out No longer eligi ble based on patient's age to complete this topic MENINGOCOCCAL VACCINES (ACWY) Aged Out No longer eligible based on patient's age to complete this topic MENINGOCOCCAL VACCINES (B) Aged Out N o longer eligible based on patient's age to complete this topic Medical Devices Not on file Procedures Procedure Name Priority Date/Time Associated Diagnosis Comments BI MAMMOGRAM SCREENING WITH TOMOSYNTHESIS WITH CAD (BILATERAL) Routine 03/13/2017 8:13 AM EDT Malignant neoplasm of right female breast, unspecified site of breast from Last 3 Months or Most Recently Relevant to Health Maintenance Results * BI MAMMOGRAM SCREENING WITH TOMOSYNTHESIS WITH CAD (BILATERAL) (03/13/2017 8:13 AM EDT) Anatomical Region Laterality Modality Breast Left, Breast Right, Breast Bilateral Bila teral Mammography Other 03/13/2017 8:13 AM EDT Impressions 03/13/2017 8:52 AM EDT [...] OF IMPRESSION us Kenia Busch MD IMG MG EXAMS Final Resu lt from Last 3 Months or Most Recently Relevant to Health Maintenance Insurance [employer] TOTAL CHOICE INDEMNITY [employer] TOTAL CHOICE INDEMNITY InStaff TOTAL CHOICE INDEMNITY InStaff TOTAL CHOICE INDEMNITY InStaff TOTAL CHOICE INDEMNITY InStaff TOTAL CHOICE INDEMNITY InStaff TOTAL CHOICE INDEMNITY [facility] TOTAL CHOICE INDEMNITY Care Teams Assembler Piano Relationship Specialty Start Date End Date Efrem Adams MD [address] [address] PCP - General 12/22/14 Kerri Gunter RN [address] [address] [email or web address] Primary Infusion Nurse 01/11/15 Kenia Busch MD [address] [place] [id number] [email or web address] Internal Medicine 03/07/15 Mallorie Urbina NP [address] [place] [address] [address] [place] [address] [email or web address] Nurse Practitioner 03/07/15 Additional Source Comments The information contained in this document represents components of the legal health record. It is not the complete legal health record.[facility]
--- OUTSIDE RECORDS SUMMARY | 2025-05-17 06:45 | XMS_ITS | Patient Health Record ---
Author Organization [facility] Address [address] [facility] [place] [address] Care Team Providers Care Lab Specialist Name Role Phone Justice Baez MD Primary Care Provider Reji Nichols Unavailable [phone] Allergies No Known Allergies Reason For Referral [...] Coverage Start Date Coverage End Date [employer] [facility] [address] [place] [address] [id number] Baljinder Vaca Self - patient is the insured Medical (General) History Medical History History ICD Code Anxiety Broken bones Cancer Osteoporosis Chicken pox Factor V Blood covid-19 Surgical History Surgery Date(Month/Year) cancer surgery Breast 08/2010
--- OUTSIDE RECORDS SUMMARY | 2025-05-17 06:45 | XMS_ITS | Patient Health Record ---
Author Organization Justice Baez III, MD Address [address] [place] [address] DR [place]LISLE [place] [address] Care Team Providers Care Drafter Apprentice Name Role Phone Dr. Justice Baez III Primary Care Provider [phone] Allergies Allergen (clinical drug ingredient) Drug/Non Drug Allergy documented on EMR Reaction Allergy Type Onset Date Status No Known Drug Allergy Unknown Drug Allergy Active Shellfish (FN) scallops (uncoded) Unknown Allergy Active Results Component Value Reference Range Notes MAMMOGRAM DIGITAL BILATERAL SCREEN Reviewed date:01/21/2025 09:12:21 AM Interpretation:undefined Performing Lab: Notes/Report: undefined XR DEXA axial skeleton (Not yet reviewed by provider) Interpretation: Performing Lab: Notes/Report: [address] [place] [id number] Mammography Report Signed Patient: Baljinder Larios MR#: [id number] : 1965 Acct:[id number] Age/Sex: 59 / F ADM Date: 03/09/25 Loc: HO.MAMMO Attending Dr: Justice Baez MD Ordering Physician: Justice Baez MD Results: Date of Service: 03/09/25 Follow Up: Procedure(s): XR DEXA axial skeleton Accession Number(s): [id number] cc: Justice Baez MD EXAMINATION: DXA BONE DENSITY AXIAL HISTORY: osteoporosis TECHNIQUE: ConnXus Dual energy absorptiometry (DEXA) of the lumbar spine, total left hip, and femoral neck was performed. COMPARISON: Comparison is made with the prior examination dated 05/04/2019. FINDINGS: The bone mineral density of the lumbar spine is 0.894 g/cm2, corresponding to a T-score of -2.4, and a Z-score of -1.5. This is indicative of osteopenia. This represents a BMD change of 10.1% compared to the prior exam. This is statistically significant. The bone mineral density of the left total hip is 0.786 g/cm2, corresponding to a T-score of -1.8, and a Z-score of -1.0. This is indicative of osteopenia. This represents a BMD change of 3.6% compared to the prior exam. This is not statistically significant. The bone mineral density of the left femoral neck is 0.675 g/cm2, corresponding to a T-score of -2.6, and a Z-score of -1.6. This is indicative of osteoporosis. This represents a BMD change of -1.9% compared to the prior exam. MM/XR DEXA axial skeleton IMPRESSION: Based on bone mineral density, and according to World Health Organization (WHO) criteria, the diagnosis is consistent with osteoporosis. Statistically, 68% of repeat scans fall within 1 SD (+/- 0.010 g/cm2 for AP spine L1-L4) and 1 SD (+/- 0.012 g/cm2 for femur total) FRAX is a trademark of the [employer]'s [employer] Metabolic Bone Disease, a World Health Organization (WHO) Collaborating Center. Electronically signed by: Justice Hines MD 03/09/2025 10:56 AM EDT Dictated By: Justice Hines MD Signed By: <Electronically signed by Justice Hines MD in OV> 03/09/25 1056 DD/ 1000 TD/TT: 03/09/25 1020 Mover: [facility] [address] [place], [place] [address] Mammography Report Signed Patient: Tunde Larios MR#: [id number] : 1965 Acct:[id number] Age/Sex: 59 / F ADM Date: 03/09/25 Loc: HO.MAMMO Attending Dr: Justice Baez MD Ordering Physician: Justice Baez MD Results: Date of Service: Follow Up: Procedure(s): XR DEX A axial skeleton Accession Number(s): [id number] cc: Justice Baez MD EXAMINATION: DXA BON E DENSITY AXIAL HISTORY: osteoporosis TECHNIQUE: Synapticon Dual energy absorptiometry (DEXA) of the lumbar spine, total left hip, and femoral neck was performed. COMPARISON: Comparis on is made with the prior examination dated 05/04/2019. FINDINGS: The bone mineral den sity of the lumbar spine is 0.894 g/cm2, corresponding to a T -score of -2.4, and a Z-score of -1.5. This is indicative of osteopenia. This represents a BM D change of 10.1% compared to the prior exam. This is statistically significant. The bone mineral den sity of the left total hip is 0.786 g/cm2, corresponding to a T -score of -1.8, and a Z-score of -1.0. This is indicative of osteopenia. This represents a BM D change of 3.6% compared to the prior exam. This is not statistically significant. The bone mineral den sity of the left femoral neck is 0.675 g/cm2, corresponding to a T -score of -2.6, and a Z-score of -1.6. This is indicative of osteoporosis. This represents a BM D change of -1.9% compared to the prior exam. M M/XR DEXA axial skeleton IMPRESSION: Based on bone minera l density, and according to World Health Organization (WHO) myla milan, the diagnosis is consistent with osteoporosis. Statistically, 68% o f repeat scans fall within 1 SD (+/- 0.010 g/cm2 for AP spine L1-L4) and 1 SD (+/- 0.012 g/cm2 for femur total) FRAX is a trademark of the [employer] Metabolic Bone Disease, a World Health Organization (WHO) Collaborating Center. Electronically jesus d by: Justice Hines MD 03/09/2025 10:56 AM EDT RP Dictated By: Justice Hines MD Signed By: <Kari burgos signed by Justice Hines MD in OV> 03/09/25 1056 DD/ 1000 TD/TT: 03/09/25 1020 Mover: Reason For Referral No Information Medications Medication SIG (Take, Route, Frequency, Duration) Notes Start Date End Date Status Triamcinolone Acetonide 0.1 % 1 application Externally Twice a day 01/10/2023 Active Alendronate Sodium 70 MG TAKE 1 TABLET B Y MOUTH ONE TIME PER WEEK for 84 Active Multivitamins - Orally Acti ve Immunizations Vaccine Route Administration Date Status Comme nts Tdap Unknown 02/12/2019 Administered COVID 19 Moderna Unknown 11/28/2020 Administered Influenza, quad Unknown 06/17/2019 Administered COVID 19 Moderna Unknown 01/01/2021 Administered Influenza, quad Unknown 06/07/2010 Administered Social History Tobacco Use: Social History Observation [...] Never (0 point) Points 4 Interpretation Positive Problems Problem Type SNOMED Code ICD Code Onset Dates Problem Status W/U Status Risk Notes Problem 5898218 Former smoker (Z87.891) Active confirmed She is highly motivated not to smoke. We discussed a plan to prevent relapse in times of stress or illness. Problem 183716996 Overweight (BMI 25.0-29.9) (E66.3) Active confirmed Body mass index is 25.53. We discussed diet and nutrition. We made a plan to lose weight at a rate of one half of a pound per week until the body mass index was in the normal range. Problem 39557832 Postmenopausal (Z78.0) Active confirmed She has had no vaginal bleeding or periods or symptoms of vasomotor instability. Problem 140920400 Malignant neoplasm of unspecified site of right female breast (C50.911) Active confirmed There was no si gn of a new primary are very current today. Surveillance will continue. She will continue with annual mammography. Problem 346067640847643 Bursitis of left shoulder (M75.52) Active confirmed The pain in the shoulder has resolved and she is now able to conduct all of the activities of daily life without pain. Problem 172946990 Estrogen receptor positive status [ER+] (Z17.0) Active confirmed There has been no recurrence of the breast cancer and no new primary. She will undergo annual mammography. Problem 831748516 Onychomycosis (B35.1) Active confirmed She continues o n terbinafine without any complaint. Problem 367232900 Thrombophilia (D68.59) Active confirmed She has had no clotting or bleeding. Surveillance will continue. Problem Age-related osteoporosis (563681050) Osteoporosis, unspecified osteoporosis type, unspecified pathological fracture presence (M81.0) Active confirmed A bone density has been ordered. No change in her medications was made. Problem 663381893 Adenomatous polyp of colon, unspecified part of colon (D12.6) Active confirmed I urged her to continue with Dr. Justice Brown, gastroenterologis t at [facility]. She should have colonoscopy at least every 5 years. Problem 531306659 Factor V Leiden (D68.51) Active confirmed She has had no symptoms of arterial or venous blood clots since her last visit. Problem Hyperlipidemia (34829302) Other hyperlipidemia (E78.49) Active confirmed She continues t o decline my offer of a prescription for statin medication. Her total cholesterol has been consistently elevated. She is aware of the risks and benefits.I have ordered comprehensive blood work to be done in the next few days which will include a fasting lipid profile. Vital Signs Heart Rate 79 /min 01/21/2025 Temperature 98.1 degrees Fahrenheit 01/21/2025 Blood pressure diastolic 79 mm Hg 01/21/2025 Height 67 in 01/21/2025 Blood pressure systolic 142 mm Hg 01/21/2025 Weight 163 lbs 01/21/2025 BMI 25.53 kg/m2 01/21/2025 Encounters Encounter Location Date Provider Diagnosis Justice Baez III, MD [address] [place] [address] [place] [id number] 07/23/2024 Justice Baez Other hyperlipidemia E78.49 ; Overweight (BMI 25.0-29.9) E66.3 ; Factor V Leiden D68.51 ; Osteoporosis, unspecified osteoporosis type, unspecified pathological fracture presence M81.0 ; Former smoker Z87.891 and Malignant neoplasm of unspecified site of right female breast C50.911 Justice Baez III, MD [address] [place] [address] [place] [id number] 01/21/2025 Justice Baez Other hyperlipidemia E78.49 ; [...] Treat ment Notes Treatment Clinical Notes 07/23/2024 Overweight (BMI 25.0-29.9) (ICD-10 - E66.3) She is very slightly overweight. We have discussed a weight reduction regimen. We have discussed her diet and nutrition. We made a plan to lose weight at a rate of one half of a pound per week. 07/23/2024 Other hyperlipidemia (ICD-10 - E78.49) She continues to decline my offer of a prescription for statin medication. Her total cholesterol has been consistently elevated. She is aware of the risks and benefits. 01/21/2025 Malignant neoplasm o f unspecified site of right female breast (ICD-10 - C50.911) There was no sign of a new primary are very current today. Surveillance will continue. She will continue with annual mammography. 01/21/2025 Other hyperlipidemia (ICD-10 - E78.49) She continues to decline my offer of a prescription for statin medication. Her total cholesterol has been consistently elevated. She is aware of the risks and benefits.I have ordered comprehensive blood work to be done in the next few days which will include a fasting lipid profile. 07/23/2024 Factor V Leiden (ICD-10 - D68.51) She has had no symptoms of arterial or venous blood clots since her last visit. 01/21/2025 Osteoporosis, unspecified osteoporosis type, unspecified pathological fracture presence (ICD-10 - M81.0) A bone density has been ordered. No change in her medications was made. 07/23/2024 Osteoporosis, unspecified osteoporosis type, unspecified pathological fracture presence (ICD-10 - M81.0) He continues to take her alendronate without side effects. Will have a bone density every 2 years. 01/21/2025 Overweight (BMI 25.0-29.9) (ICD-10 - E66.3) Body mass index is 25.53. We discussed diet and nutrition. We made a plan to lose weight at a rate of one half of a pound per week until the body mass index was in the normal range. 07/23/2024 Former smoker (ICD-1 0 - Z87.891) She is highly motivated not to smoke. We discussed a plan to prevent relapse in times of stress or illness. 01/21/2025 Bursitis of left shoulder (ICD-10 - M75.52) The pain in the shoulder has resolved and she is now able to conduct all of the activities of daily life without pain. 07/23/2024 Malignant neoplasm o f unspecified site of right female breast (ICD-10 - C50.911) There was no sign of a new primary are very current today. Surveillance will continue. She will continue with annual mammography. 01/21/2025 Onychomycosis (ICD-1 0 - B35.1) She [...] bleeding. Surveillance will continue. Plan Of Treatment Pending Test Test Name Order Date PROFILE, FASTING (COMPREHENSIVE METABOLI C) 07/23/2024 PROFILE, FASTING (COMPREHENSIVE METABOLI C) 01/21/2025 CBC w DIFF 01/21/2025 BONE DENSITY DEXA 01/21/2025 CBC WITH AUTO DIFF 07/23/2024 Lipid Panel 01/21/2025 Lipid Panel 07/23/2024 Vitamin D 25-OH Total 07/23/2024 XR DEXA axial skeleton 03/09/2025 Next Appt Details Provider Name:Justice Baez , 05/19/2025 09:15:00 AM, [address] [place] [address] SAUR[place], [place], [address], Provider Name:Justice Baez , 01/24/2026 09:00:00 AM, [address] [place] [address] SAURAV SANDERS, [place], [address], Insurance Providers Payer Name Payer Address Payer Phone Subscriber Number Group Number Insured Name Patient Relationship to Insured Coverage Start Date Coverage End Date [facility] [address] [place] [address] [id number] Baljinder Larios Self - patient is the insured Medical (General) History Medical History History ICD Code ductal carcinoma right breas t. 2010, ER positive, lumpectomy, radiation, Lupron, anastrozole, DFCI chronic bursitis, left shoulder onychomycosis panic disorder thrombophilia, factor V Leiden BrCa 1 and 2 negative, family history of breast ovarian cancer 2016, colonoscopy, tubular adenoma osteoporosis [id number] last menstrual period June 2010 postmenopausal vaginal bleeding. 2017 allergic rhinitis former smoker Diverticulitis February 2022 Consistently refuses to consider taking a statin medication Surgical History Surgery Date(Month/Year) endometrial biopsy, Dr. Mauricio Adams 20 [address] [facility] Justice Brown tubular adenoma 2017 right breast lumpectomy [id number] appendectomy 1970 Hospitalization History Reason Date(Month/Year) No history
--- OUTSIDE RECORDS SUMMARY | 2025-05-17 06:45 | XMS_ITS ---
Author Organization [facility] Address [address] [address] Phone Care Team Providers Care Design Quality Engineer Name Role Phone Efrem Adams MD Primary Care Provider [phone] Kerri Gunter RN Unavailable [phone] Kenia Busch MD Unavailable [phone] Mallorie Urbina NP Unavailable Active Problems Problem Noted Date Diagnosed Date Malignant neoplasm of right breast 01/31/2015 Current Treatment and Therapy Plans No current plan information found. Past Treatment and Therapy Plans Oncology Therapy Plan Plan Name Start Date Discontinue Date Treatment Medications Discontinue Reason Plan Provider LEUPROLIDE ACETATE 3 MONTH (LUPRON DEPOT 3 MONTH) 01/31/2015 03/28/2017 leuprolide (3 month) (LUPRON DEPOT 3 MONTH) a. Therapy Complete Mallorie Urbina NP Resolved Problems Problem Noted Date Diagnosed Date Resolved Date Breast cancer 05/06/2012 01/25/2015 Overview (10/08/2014): Malignant tumor of breast
[2025-05-17 06:52] LABS: MANUAL DIFF FLAG NO
[2025-05-17 07:12] LABS: Hematocrit 42.6 % (37.0-47.0); Hemoglobin 13.5 g/dl (12.0-16.0); Imm Gran Abs Auto 0.02 X10*3/uL (0.00-0.03); Imm Gran Pct Auto 0.4 % (0.0-0.4); Lymphocytes Absolute Auto 1.9 X10*3/uL (1.2-4.9); Mean Corpuscular HGB Conc 31.7 g/dl (31.0-35.0); Mean Corpuscular Hemoglobin 29.3 pg (27.0-33.0); Mean Corpuscular Volume 92.4 fL (80.0-98.0); NRBC Abs Auto 0.000 X10*3/uL (0.0-0.012); NRBC Pct Auto 0.0 /100WBC (0.0-0.2); Platelet Count 243 X10*3/uL (160-400); Red Blood Count 4.61 X10*6/uL (4.20-5.50); White Blood Count 5.2 X10*3/uL (4.8-10.8)
[2025-05-17 07:47] LABS: Alanine Aminotransferase 22 U/L (0-31); Albumin Level 4.8 g/dL (3.5-5.0); Alkaline Phosphatase 73 U/L (39-117); Anion Gap 11 (12-20); Aspartate Amino Transferase 23 U/L (5-31); Blood Urea Nitrogen 12 mg/dL (9-16); Calcium 9.4 mg/dL (8.4-10.2); Carbon Dioxide 29 mmol/L (22-29); Chloride 106 mmol/L (96-108); Cholesterol 260 mg/dL (<200); Estimated Glomerular Filt Rate > 60; HDL Cholesterol 75 mg/dL (>40); Potassium 3.7 mmol/L (3.3-5.1); Sodium 142 mmol/L (135-145); Total Protein 7.1 g/dL (6.5-8.0); Triglycerides 111 mg/dL (<150)
[2025-05-17 16:17] LABS: Bacterial Vaginosis PCR NEGATIVE (Negative); Candida Group PCR NOT DETECTED (Not Detect); Candida glab krusei PCR NOT DETECTED (Not Detect); Trichomonas vaginalis PCR NOT DETECTED (Not Detect)
== END 2025-05-17 06:42 | disposition home or self-care (01) ==
LOC: HO.LAB 06:41
PROVIDERS: Advanced Practice Midwife; PCP Internal Medicine Medical Oncology; Visit Provider Internal Medicine Medical Oncology
DX: Z01.419 Encounter for gynecological examination (general) (routine) without abnormal findings (principal); R39.89 Other symptoms and signs involving the genitourinary system; R10.2 Pelvic and perineal pain; E78.49 Other hyperlipidemia; E66.3 Overweight; Z13.6 Encounter for screening for cardiovascular disorders; Z68.26 Body mass index [BMI] 26.0-26.9, adult
CPT/HCPCS: 36415; 80053; 80061; 81003; 81515; 85025

== ENCOUNTER 2025-05-17 10:15 | Outpatient (REF) | payer OTHER, SELFPAY ==
--- OUTSIDE RECORDS SUMMARY | 2025-05-17 15:56 | XMS_ITS ---
Author Organization [facility] Address [address] [address] Phone Care Team Providers Care Supervisor Irrigation Name Role Phone Efrem Adams MD Primary Care Provider [phone] Kerri Gunter RN Unavailable Kenia Busch MD Unavailable [phone] Mallorie Urbina NP Unavailable Active Problems [...]
--- OUTSIDE RECORDS SUMMARY | 2025-05-17 15:56 | XMS_ITS | Encounter Summary ---
Author Organization [facility] Address [address] [place] [address] Phone Care Team Providers Care Long Winder Tender Name Role Phone Efrem Adams MD Primary Care Provider [phone] Kerri Gunter RN Unavailable [phone] Kenia Busch MD Unavailable [phone] Mallorie Urbina NP Unavailable [phone] Encounter Details Date Type Department Care Team (Late st Contact Info) Description 01/24/2015 Transcribe Orders [facility] [address] [address] Amisha Shirley [address] [place] [address]. [place] [address] [email or web address] Annual physical exam (Primary Dx) [...] facility documented in this encounter Care Teams Long Winder Tender Relationship Specialty Start Date End Date Efrem Adams MD [address] [id number] PCP - General 12/22/14 Kerri Gunter, RN [address] [address] [email or web address] Primary Infusion Nurse 01/11/15 Kenia Busch MD [address] [place] [address] [email or web address] Medicine 03/07/15 Mallorie Urbina NP [address] [place] [address] [address] [place] [address] [email or web address] Nurse Practitioner 03/07/15 documented as of this encounter Additional Source Comments The information contained in this document represents components of the legal health record. It is not the complete legal health record.[facility]
--- OUTSIDE RECORDS SUMMARY | 2025-05-17 15:56 | XMS_ITS | Clinical Summary ---
Author Organization [facility] Address [address] [place] [address] Phone Care Team Providers Care Stem Mounter Name Role Phone Efrem Adams MD Primary Care Provider [phone] Kerri Gunter RN Unavailable [phone] Kenia Busch MD Unavailable [phone] Mallorie Urbina NP Unavailable [phone] Allergies No known active allergies Medications [...] 03/13/2017 9 :15 AM EDT copied from [facility] visit 07/05/16 Body Mass Index [...] Most Recently Relevant to Health Maintenance Insurance [employer] TOTAL CHOICE INDEMNITY [employer] T[employer] CHOICE INDEMNITY [employer] TOTAL CHOICE INDEMNITY [employer] TOTAL CHOICE INDEMNITY [employer] TOTAL CHOICE INDEMNITY [employer] TOTAL CHOICE INDEMNITY [employer] TOTAL CHOICE INDEMNITY [facility] TOTAL CHOICE INDEMNITY Care Teams Stem Mounter Relationship Specialty Start Date End Date Efrem Adams MD [address] [address] PCP - General 12/22/14 Kerri Gunter RN [address] [address] [email or web address] Primary Infusion Nurse 01/11/15 Kenia Bucsh MD [address] [place] [address] [email or web address] Internal Medicine 03/07/15 Mallorie Urbina NP [address] [place] [address] [address] [place] [address] [email or web address] Nurse Practitioner 03/07/15 Additional Source Comments The information contained in this document represents components of the legal health record. It is not the complete legal health record.[facility]
--- OUTSIDE RECORDS SUMMARY | 2025-05-17 15:56 | XMS_ITS | Encounter Summary ---
Author Organization [facility] Address [address] [place] [address] Phone Care Team Providers Care Water Conservationist Name Role Phone Efrem Adams MD Primary Care Provider [phone] Kerri Gunter RN Unavailable [phone] Kenia Busch MD Unavailable [phone] Mallorie Urbina NP Unavailable [phone] Encounter Details Date Type Department Care Team (Late st Contact Info) Description 03/13/2017 Transcribe Orders [facility], [facility], [facility] [address] [place] [address], [address] [place] [address] Kenia Busch MD [address] [place] [address] [email or web address] Social History Tobacco Use Types Packs/Day Years [...] on filedocumented in this encounter Care Teams Water Conservationist Relationship Specialty Start Date End Date Efrem Adams MD [address] [address] PCP - General 12/22/14 Kerri Gunter RN [address] [address] [email or web address] Primary Infusion Nurse 01/11/15 Kenia Busch MD [address] [place] [id number] [email or web address] Internal Medicine 03/07/15 Mallorie Urbina NP [address] [facility] [place] [place] [address] [email or web address] Nurse Practitioner 03/07/15 documented as of this encounter Additional Source Comments The information contained in this document represents components of the legal health record. It is not the complete legal health record.[facility]
--- OUTSIDE RECORDS SUMMARY | 2025-05-17 15:56 | XMS_ITS | Encounter Summary ---
Author Organization [facility] Address [address] [place] [address] Phone Care Team Providers Care Skidder Lever Operator Name Role Phone Efrem Adams MD Primary Care Provider [phone] Kerri Gunter RN Unavailable [phone] Kenia Busch MD Unavailable [phone] Mallorie Urbina NP Unavailable [phone] Encounter Details Date Type Department Care Team (Late st Contact Info) Description 03/13/2017 Ancillary Orders [facility], [facility], [facility] [address] [place] [address], [address] [place] [address] Kenia Busch MD [address] [place] [address] [email or web address] [place] female breast Social History Tobacco [...] breast documented in this encounter Care Teams Skidder Lever Operator Relationship Specialty Start Date End Date Efrem Adams MD [address] [address] PCP - General 12/22/14 Kerri Gunter RN [address] [address] [email or web address] Primary Infusion Nurse 01/11/15 Kenia Busch MD [address] [place] [address] [email or web address] Internal Medicine 03/07/15 Mallorie Urbina NP [address] [place] [address] [place] [place] [address] [email or web address] Nurse Practitioner 03/07/15 documented as of this encounter Additional Source Comments The information contained in this document represents components of the legal health record. It is not the complete legal health record.[facility]
--- OUTSIDE RECORDS SUMMARY | 2025-05-17 15:56 | XMS_ITS | Clinical Summary ---
Author Organization [facility] Address [address] [place] [address] Care Team Providers Care Microcomputer Support Specialist Name Role Phone Unavailable Primary Care Provider [...] Drug Screen 08/18/2024 Depression Annual Screen 08/18/2024 [id number] (3 - season) 2025 01/01/2021, 11/28/2020 Imm-Influenza (#1) 2025 06/17/2019, 06/07/2010 Imm-DTaP/Tdap/Td (2 - Td or Tdap) 02/12/2029 02/12/2019 Cervical Ablation/Cold-Knife Conization Discontinued Cervical Cryotherapy Discontinued Colposcopy Discontinued Endometrial Biopsy Discontinued Excision/Leep Discontinued HPV Genotyping Discontinued Imm-Hepatitis B Aged Out No longer el igible based on patient's age to complete this topic Vaginal Pap Discontinued Vulvoscopy Discontinued Insurance COUNTS INCLUDE 234 BEDS AT [facility] Member Subscriber Plan / Payer (Ef fective 2020-Present) Name:Abby Vaca Relation to Subscriber:Self Name:Abby Vaca Payer ID:[id number] Type:Indemnity Address: [facility] [address] [place] [address]
== END 2025-05-17 10:16 | disposition home or self-care (01) ==
LOC: HO.LNP 10:15
PROVIDERS: Visit Provider Advanced Practice Midwife
DX: R10.2 Pelvic and perineal pain (principal)
CPT/HCPCS: 87086

== ENCOUNTER 2025-05-17 10:15 | Outpatient (AMB) | payer OTHER, SELFPAY ==
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
[2025-05-17 10:24] VITALS: BP 122/74; BMI 26.0
== END 2025-05-17 11:32 | disposition home or self-care (01) ==
LOC: HO.HWS 10:16
PROVIDERS: PCP Internal Medicine Medical Oncology; Visit Provider Advanced Practice Midwife
DX: Z01.419 Encounter for gynecological examination (general) (routine) without abnormal findings (principal); R39.89 Other symptoms and signs involving the genitourinary system
CPT/HCPCS: 99212; 99396; 99459

== ENCOUNTER 2025-05-17 10:37 | Outpatient (REF) | payer OTHER, SELFPAY | END 2025-05-17 10:38 | disposition home or self-care (01) | LOC: HO.LNP 10:37 | PROVIDERS: Visit Provider Advanced Practice Midwife | DX: Z13.89 Encounter for screening for other disorder (principal) ==